=== PATIENT | female | born 1980 | race Caucasian/White ===

== ENCOUNTER 2016-06-06 17:36 | Emergency (ER) | payer BC, SELFPAY ==
[~2016-06-06 17:36] MED LIST: DIFL50TA PR; Naproxen PO; VICO5TAB OR
[2016-06-06] MEDS ORDERED: KETOROLAC 30 MG/ML VIAL (J1885) As Ordered ONE (19:28)
[2016-06-06] MEDS ORDERED: ONDANSETRON 4MG/2ML VIAL (J2405) As Ordered ONE (19:28)
[2016-06-06 19:31] LABS: BASO # 0.2 K/mm3 (0.0-0.2); BASO % 1.8 % (0.0-1.0); EOS # 0.2 K/mm3 (0.0-0.50); EOS % 2.4 % (0.0-3.0); LARGE UNSTAINED CELL # 0.2 K/mm3 (0.0-0.4); LARGE UNSTAINED CELL % 1.8 % (0.0-4.0); LYMPH # 4.4 K/mm3 (1.5-4.5); LYMPH % 40.1 % (24.0-44.0); MEAN CORPUSCULAR HGB CONC 34.5 g/dl (32.0-36.5); MONO # 0.5 K/mm3 (0.0-0.8); MONO % 4.2 % (0.0-5.0); NEUTROPHILS # 5.3 K/mm3 (1.8-7.7); NEUTROPHILS % 49.7 % (36.0-66.0); PLATELET COUNT, AUTOMATED 331 k/mm3 (150-450); RED CELL DISTRIBUTION WIDTH 12.7 % (11.5-14.5); WHITE BLOOD COUNT 10.6 K/mm3 (4.0-10.0)
[2016-06-06 19:58] LABS: ALBUMIN 3.9 GM/DL (3.2-5.2); ALBUMIN/GLOBULIN RATIO 1.03 (1.00-1.93); ALKALINE PHOSPHATASE 62 U/L (45-117); ALT/SGPT 33 U/L (12-78); AMYLASE 37 U/L (25-115); ANION GAP 8 MEQ/L (8-16); AST/SGOT 14 U/L (15-37); BILIRUBIN,DIRECT < 0.1 MG/DL (0.0-0.2); BILIRUBIN,TOTAL 0.3 MG/DL (0.2-1.0); BLOOD UREA NITROGEN 15 MG/DL (7-18); CARBON DIOXIDE LEVEL 29 MEQ/L (21-32); CHLORIDE LEVEL 106 MEQ/L (98-107); CREATININE FOR GFR 0.76 MG/DL (0.55-1.02); GLOMERULAR FILTRATION RATE > 60.0 (>60); GLUCOSE, FASTING 89 MG/DL (70-105); POTASSIUM SERUM 3.8 MEQ/L (3.5-5.1); SODIUM LEVEL 143 MEQ/L (136-145); TOTAL PROTEIN 7.7 GM/DL (6.4-8.2)
--- NOTE | 2016-06-06 20:20 | REPUSA ---
CLINICAL HISTORY: Left flank pain. TECHNIQUE: Multiple axial CT images were obtained through the abdomen and pelvis without administrat ion of oral or intravenous contrast material. COMMENTS: Comparison is made with prior CT abdomen and pelvis dated 08/29/2015. There is normal hepatic hypoattenuation without mass. There is no intra or extrahepatic biliary duct al dilatation. The spleen is normal. 1.7 cm splenic arterial aneurysm is again seen. The gallbladde r is within normal limits. The pancreas is of normal contour and attenuation characteristics. There is no evidence of adrenal mass. Small hiatal hernia is present. The kidneys are normal in size, shape and configuration. There is no evidence of renal or ureteral m ass. No renal or ureteral calculi are identified. There is no hydroureter or hydronephrosis. No evidence for appendicitis. There is evidence of circumferential wall thickening involving duodenu m, loops of jejunum and ileum compatible with panenteritis. Infectious and inflammatory etiology is considered. No evidence for small or large bowel obstruction. There is no evidence of abdominal asc ites or lymphadenopathy. Status post hysterectomy. Both ovaries appear to be present and unremarkable. There is no evidence of intrinsic or extrinsic bladder mass. There is no pelvic ascites or lymphaden opathy. Images of the lung bases show no evidence of pleural or parenchymal mass. There are no pleural effus ions. The bony structures are free of lytic or blastic lesions. IMPRESSION: 1. There is evidence of circumferential wall thickening involving duodenum, loops of jejunum and ile um compatible with panenteritis. Infectious and inflammatory etiology is considered. 2. 1.7 cm splenic arterial aneurysm is again seen. Thank you for your kind referral of this patient. We appreciate the opportunity to participate in thi s patient's care.
[2016-06-06] MEDS ORDERED: NORCO 5/325MG TABLET (BULK) As Ordered ONE (21:19)
--- NOTE | 2016-06-06 21:29 | EDDOCDS ---
Physician Documentation [facility] Name: Evangelista Melendez Age: 36 yrs Sex: Female : 1980 Arrival Date: 06/06/2016 Time: 17:36 Bed I7 / 29 Private MD: Shaye Disposition: 06/06/16 21:19 Discharged to Home/Self Care. Impression: Other abdominal pain - PANENTERITIS. - Condition is Stable. - Discharge Instructions: Abdominal Pain, Adult. - Prescriptions for Flagyl 500 mg Oral Tablet - take 1 tablet by ORAL route every 8 hours for 10 days; 30 tablet. [place] 5- 325 mg Oral Tablet - take 1 tablet by ORAL route every 6 hours As needed MDD: 4 tabs; 6 tablet. Prednisone 20 mg Oral Tablet - take 2 tablet by ORAL route once daily for 5 days; 10 tablet. ZOFRAN ODT 4 mg - dissolve 1 tablet by ORAL route 4 times per day As needed do not chew, do not swallow whole; 10 tablet. - Medication Reconciliation, Local Pharmacy Hours form. - Follow up: Shaye; When: 2 - 3 days; Reason: Recheck today's complaints, Continuance of care. - Problem is new. - Symptoms have improved. - Notes: USE MEDICATIONS INSTRUCTED, FOLLOW UP WITH YOUR DOCTOR IN 2-3 DAYS, RETURN TO THE ER IF THE SYMPTOMS WORSEN OR BECOME CONCERNING Historical: - Allergies: no known allergies; - Home Meds: 1. Cymbalta 30 mg oral cpDR 2. Ambien 10 mg Oral tab 1 tab once daily - PMHx: Fibromyalgia; Diverticulosis; - PSHx: Tubal ligation; KNEE ARTHROSCOPY; Hysterectomy; - Social history: Smoking status: Patient states was never smoker of tobacco. No barriers to communication noted, The patient speaks fluent Spanish. - Family history: Not pertinent. - : The pt / caregiver states he / she is not on anticoagulants. Home medication list is obtained from the patient. - Exposure Risk Screening:: None identified. 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 8 in. (172.72 cm); 21:13 BP 118 / 75; Pulse 54; Resp 18; Temp 97.8; Pulse Ox 100% ; Pain 7/10; jlm 17:38 Body Mass Index 31.17 (92.99 kg, 172.72 cm) dd6 MDM: 19:00 Undress patient appropriately for examination ordered. ck7 19:00 IV Saline Lock ordered. ck7 19:00 Ondansetron 4 mg IVP once ordered. ck7 19:00 ketorolac 30 mg IVP once ordered. ck7 19:00 NS 0.9% 1000 ml IV at bolus once ordered. ck7 19:01 Amylase Ordered. EDMS 19:01 Basic Metabolic Profile Ordered. EDMS 19:01 CBC with Diff Ordered. EDMS 19:01 Lipase Ordered. EDMS 19:01 Liver Profile Ordered. EDMS 19:01 Urinalysis Ordered. EDMS 19:01 Urine Culture Ordered. EDMS 19:01 NOTHING BY MOUTH+DIET ordered. EDMS 19:27 Urinalysis Reviewed. ck7 19:28 CT ABD & PELVIS: No Contrast Ordered. EDMS 19:43 Financial registration complete. zo 19:45 [facility] [place] Payment Agreement was scanned into [employer] and attached to record. zo 20:04 CBC with Diff Reviewed. ck7 20:04 Liver Profile Reviewed. ck7 20:04 Amylase Reviewed. ck7 20:04 Basic Metabolic Profile Reviewed. ck7 20:04 Lipase Reviewed. ck7 20:47 CT ABD & PELVIS: No Contrast Reviewed. ck7 21:16 HYDROcodone-acetaminophen 4 pack- 5 mg-325 mg 1 packets PO Per package directions; ck7 Dispense with patient. 1 po q4h prn for pain ordered. Administered Medications: 19:34 Drug: Ondansetron 4 mg [ondansetron HCl 2 mg/mL intravenous solution (2 mL)] Route: ms18 IVP; Site: right antecubital; 21:17 Follow up: Response: No Adverse Reaction ms18 19:34 Drug: ketorolac 30 mg [ketorolac 30 mg/mL (1 mL) injection solution (1 mL)] Route: IVP; ms18 Site: right antecubital; 21:18 Follow up: Response: No Adverse Reaction ms18 19:34 Drug: NS 0.9% 1000 ml [sodium chloride 0.9 % intravenous solution] Route: IV; Rate: ms18 bolus; Site: right antecubital; 21:17 Follow up: IV Status: Completed infusion; IV Intake: 1000ml ms18 21:25 Drug: HYDROcodone-acetaminophen 4 pack- 1 packets [hydrocodone 5 mg-acetaminophen 325 ms18 mg tablet (1 tabs)] {Co-Signature: slvaldo (Yanique Olmedo LPN).} Route: PO; 21:25 Follow up: Response: Med's dispensed home ms18 Signatures: Dispatcher [employer] EDSarath Lord Rosemary,RN RN rs3 Kaiden Colon, RADHA-C RPA-Cck7 Ami Snell RN RN ms18 Yanique duenas The chart was reviewed and I authenticate all verbal orders and agree with the evaluation and treatment provided.Corrections: (The following items were deleted from the chart) 19:03 19:00 UCG by Nursing ordered. ck7 ck7 Attachments: 19:45 [facility] [place] Payment Agreement zo [email or web address]
--- NOTE | 2016-06-06 21:29 | EDDOCDS ---
Nurse's Notes [facility] Name: Evangelista Melendez Age: 36 yrs Sex: Female : 1980 Arrival Date: 06/06/2016 Time: 17:36 Bed I7 Private MD: Shaye Diagnosis: Other abdominal pain-PANENTERITIS Presentation: 06/06 17:56 Presenting complaint: Patient states: left flank pain, nausea since this morning. Acute rs3 neurological deficits are not present. Mechanism of Injury: No Mechanism of Injury. Adult Sepsis Screening: The patient does not have new or worsening altered mentation. Patient's respiratory rate is less than 22. Systolic blood pressure is greater than 100. Patient has a qSOFA score of 0- Negative Sepsis Screen. Suicide/Homicide risk assessment- the patient denies having any suicidal and/or homicidal ideations and does not present with any other emotional, behavioral or mental health complaints. Status: Patient is not a guest services director or dependent. Transition of care: patient was not received from another setting of care. 17:56 Acuity: ANGELICA Level 3 rs3 17:56 Method Of Arrival: Walkin/Carried/Asstd rs3 Triage Assessment: 17:58 General: Appears in no apparent distress. Pain: Location: posterior aspect of left rs3 lateral abdomen and anterior aspect of left lateral abdomen. HIV screening NA for this visit Offered previously. Musculoskeletal: Reports Pain is 5 out of 10 on a pain scale. 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 Cymbalta 30 mg oral cpDR 2. Ambien 10 mg Oral tab 1 tab once daily - PMHx: Fibromyalgia; Diverticulosis; - PSHx: Tubal ligation; KNEE ARTHROSCOPY; Hysterectomy; - Social history: Smoking status: Patient states was never smoker of tobacco. No barriers to communication noted, The patient speaks fluent Sami. - Family history: Not pertinent. - : The pt / caregiver states he / she is not on anticoagulants. Home medication list is obtained from the patient. - Exposure Risk Screening:: None identified. Screenin:35 Screening information is obtained from the patient. Fall risk: No risks identified. ms18 Assistance ADL's: requires no assistance with activities of daily living. Abuse/DV Screen: The patient / caregiver reports he/she is: not in a situation that causes fear, pain or injury. Nutritional screening: No deficits noted. Advance Directives: There is no living will. home support is adequate. Assessment: 19:35 General: Appears in no apparent distress, comfortable, Behavior is appropriate for age, ms18 cooperative. Pain: Location: left flank Pain currently is 7 out of 10 on a pain scale. Pain began this morning. Neurological: Level of Consciousness is awake, alert, obeys commands, Oriented to person, place, time. Respiratory: No deficits noted. : Denies burning with urination, urinary frequency. Derm: Skin is pink, warm & dry. 21:26 General: Appears in no apparent distress, comfortable, Behavior is appropriate for age, ms18 cooperative, pleasant. Pain: Pain currently is 6 out of 10 on a pain scale. Neurological: No deficits noted. Respiratory: No deficits noted. Airway is patent Respiratory effort is even, unlabored. Derm: Skin is pink, warm & dry. Vital Signs: 17:38 BP 115 / 80; Pulse 78; Resp 18 S; Temp 98.3(O); Pulse Ox 99% on R/A; Weight 92.99 kg dd6 (R); Height 5 ft. 8 in. (172.72 cm); 21:13 BP 118 / 75; Pulse 54; Resp 18; Temp 97.8; Pulse Ox 100% ; Pain 7/10; jlm 17:38 Body Mass Index 31.17 (92.99 kg, 172.72 cm) dd6 Vitals: 17:38 Log In Time: June 06, 2016 at 17:35. dd6 ED Course: 17:37 Patient visited by Kale Lopez PCA. dd6 17:37 Patient moved to Waiting dd6 17:38 Shaye is Private Physician. dd6 17:38 Patient moved to Pre RCE dd6 17:57 Triage Initiated rs3 18:44 Patient moved to Triage 2 ar3 18:48 Patient visited by Sandra Molina RN. dls 18:54 Kaiden Colon R[facility]-C [facility] ck7 18:54 Eulogio Snyder DO is Attending Physician. ck7 18:54 Patient visited by Kaiden Colon RPA-C. ck7 19:01 Patient moved to I7 / 29 ar3 19:12 Urinalysis Sent. ar3 19:12 Urine Culture Sent. ar3 19:25 Patient visited by Kaiden Colon RPA-C. ck7 19:25 Patient visited by Ami Snell RN. ms18 19:25 Amylase Sent. ms18 19:25 Basic Metabolic Profile Sent. ms18 19:25 CBC with Diff Sent. ms18 19:25 Lipase Sent. ms18 19:25 Liver Profile Sent. ms18 19:35 The patient / caregiver is instructed regarding the plan of care and ED course. ms18 Accompanied by Significant Other, Patient has correct armband on for positive identification. Placed in gown. Bed in low position. Call light in reach. Property :Personal belongings accompany Pt. 19:35 Inserted saline lock: 20 gauge in right antecubital area and blood collected. The ms18 patient tolerated the procedure well. 19:[address] ms18 19:45 [facility] Payment Agreement was scanned into [email or web address] and attached to record. zo 19:57 Patient visited by Ami Snell RN. ms18 19:57 Patient moved to I ms18 20:38 Patient visited by Kaiden Colon RPA-C. ck7 20:45 CT ABD & PELVIS: No Contrast Returned. EDMS 21:11 Patient visited by Kaiden Colon RPA-C. ck7 21:13 Patient visited by Leila Mcintyre, Director Client Services. [facility] 21:19 Shaye is Referral Physician. ck7 21:20 Discontinued lock intact, bleeding controlled, pressure dressing applied, No slm redness/swelling at site. 21:26 No procedures done that require assistance. ms18 Administered Medications: 19:34 Drug: Ondansetron 4 mg [ondansetron HCl 2 mg/mL intravenous solution (2 mL)] Route: ms18 IVP; Site: right antecubital; 21:17 Follow up: Response: No Adverse Reaction ms18 19:34 Drug: ketorolac 30 mg [ketorolac 30 mg/mL (1 mL) injection solution (1 mL)] Route: IVP; ms18 Site: right antecubital; 21:18 Follow up: Response: No Adverse Reaction ms18 19:34 Drug: NS 0.9% 1000 ml [sodium chloride 0.9 % intravenous solution] Route: IV; Rate: ms18 bolus; Site: right antecubital; 21:17 Follow up: IV Status: Completed infusion; IV Intake: 1000ml ms18 21:25 Drug: HYDROcodone-acetaminophen 4 pack- 1 packets [hydrocodone 5 mg-acetaminophen 325 ms18 mg tablet (1 tabs)] {Co-Signature: slvaldo (Yanique Cunninghamneo MCKENZIE).} Route: PO; 21:25 Follow up: Response: Med's dispensed home ms18 Intake: 21:17 IV: 1000.00ml; Total: 1000.00ml. ms18 Order Results: Lab Order: Amylase; SPEC'M 06/06/16 19:08 Test: AMYLASE; Value: 37; Range: 25-115; Units: U/L; Status: F Lab Order: Basic Metabolic Profile; SPEC'M 06/06/16 19:08 Test: GLUCOSE, FASTING; Value: 89; Range: 70-105; Units: MG/DL; Status: F Test: BLOOD UREA NITROGEN; Value: 15; Range: 7-18; Units: MG/DL; Status: F Test: CREATININE FOR GFR; Value: 0.76; Range: 0.55-1.02; Units: MG/DL; Status: F Test: GLOMERULAR FILTRATION RATE; Value: > 60.0; Range: >60; Status: F Test: SODIUM LEVEL; Value: 143; Range: 136-145; Units: MEQ/L; Status: F Test: POTASSIUM SERUM; Value: 3.8; Range: 3.5-5.1; Units: MEQ/L; Status: F Test: CHLORIDE LEVEL; Value: 106; Range: 98-107; Units: MEQ/L; Status: F Test: CARBON DIOXIDE LEVEL; Value: 29; Range: 21-32; Units: MEQ/L; Status: F Test: ANION GAP; Value: 8; Range: 8-16; Units: MEQ/L; Status: F Test: CALCIUM LEVEL; Value: 9.0; Range: 8.5-10.1; Units: MG/DL; Status: F Test Note: ; Units are mL/min/1.73 m2 Chronic Kidney Disease Staging per NKF: Stage I & II GFR >=60 Normal to Mildly Decreased Stage III GFR 30-59 Moderately Decreased Stage IV GFR 15-29 Severely Decreased Stage V GFR <15 Very Little GFR Left ESRD GFR <15 on TASSEL CLIPPER Lab Order: CBC with Diff; SPEC'M 06/06/16 19:08 Test: WHITE BLOOD COUNT; Value: 10.6; Range: 4.0-10.0; Abnormal: Above high normal; Units: K/mm3; Status: F Test: RED BLOOD COUNT; Value: 5.01; Range: 4.00-5.40; Units: M/mm3; Status: F Test: HEMOGLOBIN; Value: 14.5; Range: 12.0-16.0; Units: g/dl; Status: F Test: HEMATOCRIT; Value: 42.1; Range: 36.0-47.0; Units: %; Status: F Test: MEAN CORPUSCULAR VOLUME; Value: 84.0; Range: 80.0-96.0; Units: fl; Status: F Test: MEAN CORPUSCULAR HEMOGLOBIN; Value: 29.0; Range: 27.0-33.0; Units: pg; Status: F Test: MEAN CORPUSCULAR HGB CONC; Value: 34.5; Range: 32.0-36.5; Units: g/dl; Status: F Test: RED CELL DISTRIBUTION WIDTH; Value: 12.7; Range: 11.5-14.5; Units: %; Status: F Test: PLATELET COUNT, AUTOMATED; Value: 331; Range: 150-450; Units: k/mm3; Status: F Test: NEUTROPHILS %; Value: 49.7; Range: 36.0-66.0; Units: %; Status: F Test: LYMPH %; Value: 40.1; Range: 24.0-44.0; Units: %; Status: F Test: MONO %; Value: 4.2; Range: 0.0-5.0; Units: %; Status: F Test: EOS %; Value: 2.4; Range: 0.0-3.0; Units: %; Status: F Test: BASO %; Value: 1.8; Range: 0.0-1.0; Abnormal: Above high normal; Units: %; Status: F Test: LARGE UNSTAINED CELL %; Value: 1.8; Range: 0.0-4.0; Units: %; Status: F Test: NEUTROPHILS #; Value: 5.3; Range: 1.8-7.7; Units: K/mm3; Status: F Test: LYMPH #; Value: 4.4; Range: 1.5-4.5; Units: K/mm3; Status: F Test: MONO #; Value: 0.5; Range: 0.0-0.8; Units: K/mm3; Status: F Test: EOS #; Value: 0.2; Range: 0.0-0.50; Units: K/mm3; Status: F Test: BASO #; Value: 0.2; Range: 0.0-0.2; Units: K/mm3; Status: F Test: LARGE UNSTAINED CELL #; Value: 0.2; Range: 0.0-0.4; Units: K/mm3; Status: F Lab Order: Lipase; [facility]' 06/06/16 19:08 Test: LIPASE; Value: 135; Range: 73-393; Units: U/L; Status: F Lab Order: Liver Profile; [facility]' 06/06/16 19:08 Test: AST/SGOT; Value: 14; Range: 15-37; Abnormal: Below low normal; Units: U/L; Status: F Test: ALT/SGPT; Value: 33; Range: 12-78; Units: U/L; Status: F Test: ALKALINE PHOSPHATASE; Value: 62; Range: 45-117; Units: U/L; Status: F Test: BILIRUBIN,TOTAL; Value: 0.3; Range: 0.2-1.0; Units: MG/DL; Status: F Test: BILIRUBIN,DIRECT; Value: < 0.1; Range: 0.0-0.2; Units: MG/DL; Status: F Test: TOTAL PROTEIN; Value: 7.7; Range: 6.4-8.2; Units: GM/DL; Status: F Test: ALBUMIN; Value: 3.9; Range: 3.2-5.2; Units: GM/DL; Status: F Test: ALBUMIN/GLOBULIN RATIO; Value: 1.03; Range: 1.00-1.93; Status: F Lab Order: Urinalysis; [facility]' 06/06/16 19:04 Test: APPEARANCE, URINE; Value: CLOUDY; Range: CLEAR; Abnormal: Above high normal; Status: F Test: COLOR, URINE; Value: YELLOW; Range: YELLOW; Status: F Test: PH,URINE; Value: 7.0; Range: 5.0-9.0; Units: UNITS; Status: F Test: SPECIFIC GRAVITY URINE AUTO; Value: 1.014; Range: 1.002-1.035; Status: F Test: PROTEIN, URINE AUTO; Value: NEGATIVE; Range: NEGATIVE; Units: mg/dL; Status: F Test: GLUCOSE, URINE (UA) AUTO; Value: NEGATIVE; Range: NEGATIVE; Units: mg/dL; Status: F Test: KETONE, URINE AUTO; Value: NEGATIVE; Range: NEGATIVE; Units: mg/dL; Status: F Test: UROBILINOGEN, URINE AUTO; Value: 0.2; Range: 0.0-2.0; Units: mg/dL; Status: F Test: BILIRUBIN, URINE AUTO; Value: NEGATIVE; Range: NEGATIVE; Status: F Test: NITRITE, URINE AUTO; Value: NEGATIVE; Range: NEGATIVE; Status: F Test: LEUKOCYTE ESTERASE, URINE AUTO; Value: NEGATIVE; Range: NEGATIVE; Status: F Test: BLOOD, URINE BLOOD; Value: 1+; Range: NEGATIVE; Abnormal: Above high normal; Status: F Test: WBC, URINE AUTO; Value: 0; Range: 0-3; Units: /HPF; Status: F Test: RBC, URINE AUTO; Value: 3; Range: 0-3; Units: /HPF; Status: F Test: BACTERIA, URINE AUTO; Value: NEGATIVE; Range: NEGATIVE; Status: F Test: SQUAMOUS EPITHELIAL CELL UR AU; Value: 1; Range: 0-6; Units: /HPF; Status: F Test: HYALINE CAST, URINE AUTO; Value: 0; Range: 0-1; Units: /LPF; Status: F Test: AMORPHOUS SEDIMENT; Value: SMALL; Range: NEGATIVE; Abnormal: Above high normal; Status: F Radiology Order: CT ABD & PELVIS: No Contrast Test: CT ABD & PELVIS: No Contrast REASON FOR EXAMINATION: LEFT FLANK PAIN, HEMATURIA, R/O STONE; ; CLINICAL HISTORY: Left flank pain.; ; TECHNIQUE: Multiple axial CT images were obtained through the abdomen and pelvis without administrat; ion of oral or intravenous contrast material.; ; COMMENTS:; Comparison is made with prior CT abdomen and pelvis dated 08/29/2015.; ; There is normal hepatic hypoattenuation without mass. There is no intra or extrahepatic biliary duct; al dilatation. The spleen is normal. 1.7 cm splenic arterial aneurysm is again seen. The gallbladde; r is within normal limits. The pancreas is of normal contour and attenuation characteristics. There; is no evidence of adrenal mass.; ; Small hiatal hernia is present.; ; The kidneys are normal in size, shape and configuration. There is no evidence of renal or ureteral m; ass. No renal or ureteral calculi are identified. There is no hydroureter or hydronephrosis.; ; No evidence for appendicitis. There is evidence of circumferential wall thickening involving duodenu; m, loops of jejunum and ileum compatible with panenteritis. Infectious and inflammatory etiology is; considered. No evidence for small or large bowel obstruction. There is no evidence of abdominal asc; ites or lymphadenopathy.; ; Status post hysterectomy. Both ovaries appear to be present and unremarkable.; ; There is no evidence of intrinsic or extrinsic bladder mass. There is no pelvic ascites or lymphaden; opathy.; ; Images of the lung bases show no evidence of pleural or parenchymal mass. There are no pleural effus; ions. The bony structures are free of lytic or blastic lesions.; ; IMPRESSION:; 1. There is evidence of circumferential wall thickening involving duodenum, loops of jejunum and ile; um compatible with panenteritis. Infectious and inflammatory etiology is considered.; 2. 1.7 cm splenic arterial aneurysm is again seen.; ; Thank you for your kind referral of this patient. We appreciate the opportunity to participate in [facility]; s patient's care.; ; ; Outcome: 19:35 CT Study completed. ms18 21:19 Discharge ordered by Provider. ck7 21:26 Discharge Assessment: Patient awake, alert and oriented x 3. No cognitive and/or ms18 functional deficits noted. Patient verbalized understanding of disposition instructions. patient administered narcotics - no. The following High Risk Discharge criteria are identified: None. Discharged to home ambulatory. Condition: good Condition: stable Condition: improved. Discharge instructions given to patient, Instructed on discharge instructions, follow up and referral plans. medication usage, Demonstrated understanding of instructions, medications, Pt was receptive of discharge instructions/ teaching. Prescriptions given X 4. 21:27 Patient left the ED. ms18 Signatures: Dispatcher [employer] EDMS Sandra Molina, RN RN dls Sarath Wilder Daniell, CHIP CRUSHER OPERATOR CHIP CRUSHER OPERATOR dd6 Flavia Bae,RN RN rs3 Susan Baeza, CHIP CRUSHER OPERATOR CHIP CRUSHER OPERATOR ar3 Kaiden Colon, RPA-C RPA-Cck7 Yanique Olmedo LPN LPN slm Mitchell, Jessie, Director Client Services Unit Ami Ying RN RN ms18 Yanique duenas MTDD
--- NOTE | 2016-06-08 22:28 | EDDOCDS ---
Physician Documentation [facility] Name: Evangelista Melendez Age: 36 yrs Sex: Female : 1980 Arrival Date: 06/06/2016 Time: 17:36 Bed I7 / 29 Private MD: Shaye Disposition: 06/06/16 21:19 Discharged to Home/Self Care. Impression: Other abdominal pain - PANENTERITIS. - Condition is Stable. - Discharge Instructions: Abdominal Pain, Adult. - Prescriptions for Flagyl 500 mg Oral Tablet - take 1 tablet by ORAL route every 8 hours for 10 days; 30 tablet. Clifford 5- 325 mg Oral Tablet - take 1 tablet by ORAL route every 6 hours As needed MDD: 4 tabs; 6 tablet. Prednisone 20 mg Oral Tablet - take 2 tablet by ORAL route once daily for 5 days; 10 tablet. ZOFRAN ODT 4 mg - dissolve 1 tablet by ORAL route 4 times per day As needed do not chew, do not swallow whole; 10 tablet. - Medication Reconciliation, Local Pharmacy Hours form. - Follow up: Shaye; When: 2 - 3 days; Reason: Recheck today's complaints, Continuance of care. - Problem is new. - Symptoms have improved. - Notes: USE MEDICATIONS INSTRUCTED, FOLLOW UP WITH YOUR DOCTOR IN 2-3 DAYS, RETURN TO THE ER IF THE SYMPTOMS WORSEN OR BECOME CONCERNING Historical: - Allergies: no known allergies; - Home Meds: 1. Cymbalta 30 mg oral cpDR 2. Ambien 10 mg Oral tab 1 tab once daily - PMHx: Fibromyalgia; Diverticulosis; - PSHx: Tubal ligation; KNEE ARTHROSCOPY; Hysterectomy; - Social history: Smoking status: Patient states was never smoker of tobacco. No barriers to communication noted, The patient speaks fluent [place]. - Family history: Not pertinent. - : The pt / caregiver states he / she is not on anticoagulants. Home medication list is obtained from the patient. - Exposure Risk Screening:: None identified. 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 8 in. (172.72 cm); 21:13 BP 118 / 75; Pulse 54; Resp 18; Temp 97.8; Pulse Ox 100% ; Pain 7/10; jlm 17:38 Body Mass Index 31.17 (92.99 kg, 172.72 cm) dd6 MDM: 19:00 Undress patient appropriately for examination ordered. ck7 19:00 IV Saline Lock ordered. ck7 19:00 Ondansetron 4 mg IVP once ordered. ck7 19:00 ketorolac 30 mg IVP once ordered. ck7 19:00 NS 0.9% 1000 ml IV at bolus once ordered. ck7 19:01 Amylase Ordered. EDMS 19:01 Basic Metabolic Profile Ordered. EDMS 19:01 CBC with Diff Ordered. EDMS 19:01 Lipase Ordered. EDMS 19:01 Liver Profile Ordered. EDMS 19:01 Urinalysis Ordered. EDMS 19:01 Urine Culture Ordered. EDMS 19:01 NOTHING BY MOUTH+DIET ordered. EDMS 19:27 Urinalysis Reviewed. ck7 19:28 CT ABD & PELVIS: No Contrast Ordered. EDMS 19:43 Financial registration complete. zo 19:45 [facility] Payment Agreement was scanned into [employer] and attached to record. zo 20:04 CBC with Diff Reviewed. ck7 20:04 Liver Profile Reviewed. ck7 20:04 Amylase Reviewed. ck7 20:04 Basic Metabolic Profile Reviewed. ck7 20:04 Lipase Reviewed. ck7 20:47 CT ABD & PELVIS: No Contrast Reviewed. ck7 21:16 HYDROcodone-acetaminophen 4 pack- 5 mg-325 mg 1 packets PO Per package directions; ck7 Dispense with patient. 1 po q4h prn for pain ordered. 22:09 T-Sheet-- Draft Copy was scanned into [employer] and attached to record. klr Administered Medications: 19:34 Drug: Ondansetron 4 mg [ondansetron HCl 2 mg/mL intravenous solution (2 mL)] Route: ms18 IVP; Site: right antecubital; 21:17 Follow up: Response: No Adverse Reaction ms18 19:34 Drug: ketorolac 30 mg [ketorolac 30 mg/mL (1 mL) injection solution (1 mL)] Route: IVP; ms18 Site: right antecubital; 21:18 Follow up: Response: No Adverse Reaction ms18 19:34 Drug: NS 0.9% 1000 ml [sodium chloride 0.9 % intravenous solution] Route: IV; Rate: ms18 bolus; Site: right antecubital; 21:17 Follow up: IV Status: Completed infusion; IV Intake: 1000ml ms18 21:25 Drug: HYDROcodone-acetaminophen 4 pack- 1 packets [hydrocodone 5 mg-acetaminophen 325 ms18 mg tablet (1 tabs)] {Co-Signature: slm (Yanique Olmedo LPN).} Route: PO; 21:25 Follow up: Response: Med's dispensed home ms18 Signatures: Dispatcher [employer] EDSarath Lord Rosemary, RN RN rs3 Kaiden Colon RPA-C RPA-Cck7 Ami Snell RN RN ms18 Nanette Davidson LPN The chart was reviewed and I authenticate all verbal orders and agree with the evaluation and treatment provided.Corrections: (The following items were deleted from the chart) 19:03 19:00 UCG by Nursing ordered. ck7 ck7 Attachments: 19:45 [facility] Payment Agreement zo 22:09 T-Sheet-- Draft Copy kljesse Chart Complete MTDD
--- NOTE | 2016-06-08 22:28 | EDDOCDS ---
Physician Documentation [facility] Name: Evangelista Melendez Age: 36 yrs Sex: Female : 1980 Arrival Date: 06/06/2016 Time: 17:36 Bed I7 / 29 Private MD: Shaye Disposition: 06/06/16 21:19 Discharged to Home/Self Care. Impression: Other abdominal pain - PANENTERITIS. - Condition is Stable. - Discharge Instructions: Abdominal Pain, Adult. - Prescriptions for Flagyl 500 mg Oral Tablet - take 1 tablet by ORAL route every 8 hours for 10 days; 30 tablet. [place] 5- 325 mg Oral Tablet - take 1 tablet by ORAL route every 6 hours As needed MDD: 4 tabs; 6 tablet. Prednisone 20 mg Oral Tablet - take 2 tablet by ORAL route once daily for 5 days; 10 tablet. ZOFRAN ODT 4 mg - dissolve 1 tablet by ORAL route 4 times per day As needed do not chew, do not swallow whole; 10 tablet. - Medication Reconciliation, Local Pharmacy Hours form. - Follow up: Shaye; When: 2 - 3 days; Reason: Recheck today's complaints, Continuance of care. - Problem is new. - Symptoms have improved. - Notes: USE MEDICATIONS INSTRUCTED, FOLLOW UP WITH YOUR DOCTOR IN 2-3 DAYS, RETURN TO THE ER IF THE SYMPTOMS WORSEN OR BECOME CONCERNING Historical: - Allergies: no known allergies; - Home Meds: 1. Cymbalta 30 mg oral cpDR 2. Ambien 10 mg Oral tab 1 tab once daily - PMHx: Fibromyalgia; Diverticulosis; - PSHx: Tubal ligation; KNEE ARTHROSCOPY; Hysterectomy; - Social history: Smoking status: Patient states was never smoker of tobacco. No barriers to communication noted, The patient speaks fluent Nigerian. - Family history: Not pertinent. - : The pt / caregiver states he / she is not on anticoagulants. Home medication list is obtained from the patient. - Exposure Risk Screening:: None identified. 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 8 in. (172.72 cm); 21:13 BP 118 / 75; Pulse 54; Resp 18; Temp 97.8; Pulse Ox 100% ; Pain 7/10; jlm 17:38 Body Mass Index 31.17 (92.99 kg, 172.72 cm) dd6 MDM: 19:00 Undress patient appropriately for examination ordered. ck7 19:00 IV Saline Lock ordered. ck7 19:00 Ondansetron 4 mg IVP once ordered. ck7 19:00 ketorolac 30 mg IVP once ordered. ck7 19:00 NS 0.9% 1000 ml IV at bolus once ordered. ck7 19:01 Amylase Ordered. EDMS 19:01 Basic Metabolic Profile Ordered. EDMS 19:01 CBC with Diff Ordered. EDMS 19:01 Lipase Ordered. EDMS 19:01 Liver Profile Ordered. EDMS 19:01 Urinalysis Ordered. EDMS 19:01 Urine Culture Ordered. EDMS 19:01 NOTHING BY MOUTH+DIET ordered. EDMS 19:27 Urinalysis Reviewed. ck7 19:28 CT ABD & PELVIS: No Contrast Ordered. EDMS 19:43 Financial registration complete. zo 19:45 [facility] Payment Agreement was scanned into [employer] and attached to record. zo 20:04 CBC with Diff Reviewed. ck7 20:04 Liver Profile Reviewed. ck7 20:04 Amylase Reviewed. ck7 20:04 Basic Metabolic Profile Reviewed. ck7 20:04 Lipase Reviewed. ck7 20:47 CT ABD & PELVIS: No Contrast Reviewed. ck7 21:16 HYDROcodone-acetaminophen 4 pack- 5 mg-325 mg 1 packets PO Per package directions; ck7 Dispense with patient. 1 po q4h prn for pain ordered. 22:09 T-Sheet-- Draft Copy was scanned into [employer] and attached to record. klr Administered Medications: 19:34 Drug: Ondansetron 4 mg [ondansetron HCl 2 mg/mL intravenous solution (2 mL)] Route: ms18 IVP; Site: right antecubital; 21:17 Follow up: Response: No Adverse Reaction ms18 19:34 Drug: ketorolac 30 mg [ketorolac 30 mg/mL (1 mL) injection solution (1 mL)] Route: IVP; ms18 Site: right antecubital; 21:18 Follow up: Response: No Adverse Reaction ms18 19:34 Drug: NS 0.9% 1000 ml [sodium chloride 0.9 % intravenous solution] Route: IV; Rate: ms18 bolus; Site: right antecubital; 21:17 Follow up: IV Status: Completed infusion; IV Intake: 1000ml ms18 21:25 Drug: HYDROcodone-acetaminophen 4 pack- 1 packets [hydrocodone 5 mg-acetaminophen 325 ms18 mg tablet (1 tabs)] {Co-Signature: slm (Yanique Olmedo LPN).} Route: PO; 21:25 Follow up: Response: Med's dispensed home ms18 Signatures: Dispatcher [employer] EDSarath Lord Rosemary, RN RN rs3 Kaiden Colon RPA-C RPA-Cck7 Ami Snell RN RN ms18 Nanette Davidson LPN The chart was reviewed and I authenticate all verbal orders and agree with the evaluation and treatment provided.Corrections: (The following items were deleted from the chart) 19:03 19:00 UCG by Nursing ordered. ck7 ck7 Attachments: 19:45 [facility] Payment Agreement zo 22:09 T-Sheet-- Draft Copy kljesse Chart Complete MTDD
--- NOTE | 2016-06-08 22:28 | EDDOCDS ---
Nurse's Notes [facility] Name: Evnagelista Melendez Age: 36 yrs Sex: Female : 1980 Arrival Date: 06/06/2016 Time: 17:36 Bed I7 Private MD: Shaye Diagnosis: Other abdominal pain-PANENTERITIS Presentation: 06/06 17:56 Presenting complaint: Patient states: left flank pain, nausea since this morning. Acute rs3 neurological deficits are not present. Mechanism of Injury: No Mechanism of Injury. Adult Sepsis Screening: The patient does not have new or worsening altered mentation. Patient's respiratory rate is less than 22. Systolic blood pressure is greater than 100. Patient has a qSOFA score of 0- Negative Sepsis Screen. Suicide/Homicide risk assessment- the patient denies having any suicidal and/or homicidal ideations and does not present with any other emotional, behavioral or mental health complaints. 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 Transition of care: patient was not received from another setting of care. 17:56 Acuity: ANGELICA Level 3 rs3 17:56 Method Of Arrival: Walkin/Carried/Asstd rs3 Triage Assessment: 17:58 General: Appears in no apparent distress. Pain: Location: posterior aspect of left rs3 lateral abdomen and anterior aspect of left lateral abdomen. HIV screening NA for this visit Offered previously. Musculoskeletal: Reports Pain is 5 out of 10 on a pain scale. 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 Cymbalta 30 mg oral cpDR 2. Ambien 10 mg Oral tab 1 tab once daily - PMHx: Fibromyalgia; Diverticulosis; - PSHx: Tubal ligation; KNEE ARTHROSCOPY; Hysterectomy; - Social history: Smoking status: Patient states was never smoker of tobacco. No barriers to communication noted, The patient speaks fluent Vietnamese. - Family history: Not pertinent. - : The pt / caregiver states he / she is not on anticoagulants. Home medication list is obtained from the patient. - Exposure Risk Screening:: None identified. Screenin:35 Screening information is obtained from the patient. Fall risk: No risks identified. ms18 Assistance ADL's: requires no assistance with activities of daily living. Abuse/DV Screen: The patient / caregiver reports he/she is: not in a situation that causes fear, pain or injury. Nutritional screening: No deficits noted. Advance Directives: There is no living will. home support is adequate. Assessment: 19:35 General: Appears in no apparent distress, comfortable, Behavior is appropriate for age, ms18 cooperative. Pain: Location: left flank Pain currently is 7 out of 10 on a pain scale. Pain began this morning. Neurological: Level of Consciousness is awake, alert, obeys commands, Oriented to person, place, time. Respiratory: No deficits noted. : Denies burning with urination, urinary frequency. Derm: Skin is pink, warm & dry. 20:30 General: Pt in no acute distress. Will continue to monitor pt. ms18 21:26 General: Appears in no apparent distress, comfortable, Behavior is appropriate for age, ms18 cooperative, pleasant. Pain: Pain currently is 6 out of 10 on a pain scale. Neurological: No deficits noted. Respiratory: No deficits noted. Airway is patent Respiratory effort is even, unlabored. Derm: Skin is pink, warm & dry. Vital Signs: 17:38 BP 115 / 80; Pulse 78; Resp 18 S; Temp 98.3(O); Pulse Ox 99% on R/A; Weight 92.99 kg dd6 (R); Height 5 ft. 8 in. (172.72 cm); 21:13 BP 118 / 75; Pulse 54; Resp 18; Temp 97.8; Pulse Ox 100% ; Pain 7/10; jlm 17:38 Body Mass Index 31.17 (92.99 kg, 172.72 cm) dd6 Vitals: 17:38 Log In Time: June 06, 2016 at 17:35. dd6 ED Course: 17:37 Patient visited by Kale Lopez PCA. dd6 17:37 Patient moved to Waiting dd6 17:38 Shaye is Private Physician. dd6 17:38 Patient moved to Pre RCE dd6 17:57 Triage Initiated rs3 18:44 Patient moved to Triage 2 ar3 18:48 Patient visited by Sandra Molina RN. dls 18:54 Kaiden Colon RPA-C is PHCP. ck7 18:54 Eulogio Snyder DO is Attending Physician. ck7 18:54 Patient visited by Kaiden Colon RPA-C. ck7 19:01 Patient moved to I ar3 19:12 Urinalysis Sent. ar3 19:12 Urine Culture Sent. ar3 19:25 Patient visited by Kaiden Colon RPA-C. ck7 19:25 Patient visited by Ami Snell RN. ms18 19:25 Amylase Sent. ms18 19:25 Basic Metabolic Profile Sent. ms18 19:25 CBC with Diff Sent. ms18 19:25 Lipase Sent. ms18 19:25 Liver Profile Sent. ms18 19:35 The patient / caregiver is instructed regarding the plan of care and ED course. ms18 Accompanied by Significant Other, Patient has correct armband on for positive identification. Placed in gown. Bed in low position. Call light in reach. Property :Personal belongings accompany Pt. 19:35 Inserted saline lock: 20 gauge in right antecubital area and blood collected. The ms18 patient tolerated the procedure well. 19:[address] ms18 19:45 [facility] Payment Agreement was scanned into [employer] and attached to record. zo 19:57 Patient visited by Ami Snell RN. ms18 19:57 Patient moved to ms18 20:38 Patient visited by Kaiden Colon RPA-C. ck7 20:45 CT ABD & PELVIS: No Contrast Returned. EDMS 21:11 Patient visited by Kaiden Colon RPA-C. ck7 21:13 Patient visited by Leila Mcintyre, Safe Technician. jl 21:19 Shaye is Referral Physician. ck7 21:20 Discontinued lock intact, bleeding controlled, pressure dressing applied, No slm redness/swelling at site. 21:26 No procedures done that require assistance. ms18 22:09 T-Sheet-- Draft Copy was scanned into [employer] and attached to record. klr Administered Medications: 19:34 Drug: Ondansetron 4 mg [ondansetron HCl 2 mg/mL intravenous solution (2 mL)] Route: ms18 IVP; Site: right antecubital; 21:17 Follow up: Response: No Adverse Reaction ms18 19:34 Drug: ketorolac 30 mg [ketorolac 30 mg/mL (1 mL) injection solution (1 mL)] Route: IVP; ms18 Site: right antecubital; 21:18 Follow up: Response: No Adverse Reaction ms18 19:34 Drug: NS 0.9% 1000 ml [sodium chloride 0.9 % intravenous solution] Route: IV; Rate: ms18 bolus; Site: right antecubital; 21:17 Follow up: IV Status: Completed infusion; IV Intake: 1000ml ms18 21:25 Drug: HYDROcodone-acetaminophen 4 pack- 1 packets [hydrocodone 5 mg-acetaminophen 325 ms18 mg tablet (1 tabs)] {Co-Signature: slm (Yanique Olmedo LPN).} Route: PO; 21:25 Follow up: Response: Med's dispensed home ms18 Intake: 21:17 IV: 1000.00ml; Total: 1000.00ml. ms18 Order Results: Lab Order: Amylase; SPEC'M 06/06/16 19:08 Test: AMYLASE; Value: 37; Range: 25-115; Units: U/L; Status: F Lab Order: Basic Metabolic Profile; SPEC'M 06/06/16 19:08 Test: GLUCOSE, FASTING; Value: 89; Range: 70-105; Units: MG/DL; Status: F Test: BLOOD UREA NITROGEN; Value: 15; Range: 7-18; Units: MG/DL; Status: F Test: CREATININE FOR GFR; Value: 0.76; Range: 0.55-1.02; Units: MG/DL; Status: F Test: GLOMERULAR FILTRATION RATE; Value: > 60.0; Range: >60; Status: F Test: SODIUM LEVEL; Value: 143; Range: 136-145; Units: MEQ/L; Status: F Test: POTASSIUM SERUM; Value: 3.8; Range: 3.5-5.1; Units: MEQ/L; Status: F Test: CHLORIDE LEVEL; Value: 106; Range: 98-107; Units: MEQ/L; Status: F Test: CARBON DIOXIDE LEVEL; Value: 29; Range: 21-32; Units: MEQ/L; Status: F Test: ANION GAP; Value: 8; Range: 8-16; Units: MEQ/L; Status: F Test: CALCIUM LEVEL; Value: 9.0; Range: 8.5-10.1; Units: MG/DL; Status: F Test Note: ; Units are mL/min/1.73 m2 Chronic Kidney Disease Staging per NKF: Stage I & II GFR >=60 Normal to Mildly Decreased Stage III GFR 30-59 Moderately Decreased Stage IV GFR 15-29 Severely Decreased Stage V GFR <15 Very Little GFR Left ESRD GFR <15 on ICER HAND Lab Order: CBC with Diff; SPEC'M 06/06/16 19:08 Test: WHITE BLOOD COUNT; Value: 10.6; Range: 4.0-10.0; Abnormal: Above high normal; Units: K/mm3; Status: F Test: RED BLOOD COUNT; Value: 5.01; Range: 4.00-5.40; Units: M/mm3; Status: F Test: HEMOGLOBIN; Value: 14.5; Range: 12.0-16.0; Units: g/dl; Status: F Test: HEMATOCRIT; Value: 42.1; Range: 36.0-47.0; Units: %; Status: F Test: MEAN CORPUSCULAR VOLUME; Value: 84.0; Range: 80.0-96.0; Units: fl; Status: F Test: MEAN CORPUSCULAR HEMOGLOBIN; Value: 29.0; Range: 27.0-33.0; Units: pg; Status: F Test: MEAN CORPUSCULAR HGB CONC; Value: 34.5; Range: 32.0-36.5; Units: g/dl; Status: F Test: RED CELL DISTRIBUTION WIDTH; Value: 12.7; Range: 11.5-14.5; Units: %; Status: F Test: PLATELET COUNT, AUTOMATED; Value: 331; Range: 150-450; Units: k/mm3; Status: F Test: NEUTROPHILS %; Value: 49.7; Range: 36.0-66.0; Units: %; Status: F Test: LYMPH %; Value: 40.1; Range: 24.0-44.0; Units: %; Status: F Test: MONO %; Value: 4.2; Range: 0.0-5.0; Units: %; Status: F Test: EOS %; Value: 2.4; Range: 0.0-3.0; Units: %; Status: F Test: BASO %; Value: 1.8; Range: 0.0-1.0; Abnormal: Above high normal; Units: %; Status: F Test: LARGE UNSTAINED CELL %; Value: 1.8; Range: 0.0-4.0; Units: %; Status: F Test: NEUTROPHILS #; Value: 5.3; Range: 1.8-7.7; Units: K/mm3; Status: F Test: LYMPH #; Value: 4.4; Range: 1.5-4.5; Units: K/mm3; Status: F Test: MONO #; Value: 0.5; Range: 0.0-0.8; Units: K/mm3; Status: F Test: EOS #; Value: 0.2; Range: 0.0-0.50; Units: K/mm3; Status: F Test: BASO #; Value: 0.2; Range: 0.0-0.2; Units: K/mm3; Status: F Test: LARGE UNSTAINED CELL #; Value: 0.2; Range: 0.0-0.4; Units: K/mm3; Status: F Lab Order: Lipase; SPEC'M 06/06/16 19:08 Test: LIPASE; Value: 135; Range: 73-393; Units: U/L; Status: F Lab Order: Liver Profile; SPEC'M 06/06/16 19:08 Test: AST/SGOT; Value: 14; Range: 15-37; Abnormal: Below low normal; Units: U/L; Status: F Test: ALT/SGPT; Value: 33; Range: 12-78; Units: U/L; Status: F Test: ALKALINE PHOSPHATASE; Value: 62; Range: 45-117; Units: U/L; Status: F Test: BILIRUBIN,TOTAL; Value: 0.3; Range: 0.2-1.0; Units: MG/DL; Status: F Test: BILIRUBIN,DIRECT; Value: < 0.1; Range: 0.0-0.2; Units: MG/DL; Status: F Test: TOTAL PROTEIN; Value: 7.7; Range: 6.4-8.2; Units: GM/DL; Status: F Test: ALBUMIN; Value: 3.9; Range: 3.2-5.2; Units: GM/DL; Status: F Test: ALBUMIN/GLOBULIN RATIO; Value: 1.03; Range: 1.00-1.93; Status: F Lab Order: Urinalysis; SPEC'M 06/06/16 19:04 Test: APPEARANCE, URINE; Value: CLOUDY; Range: CLEAR; Abnormal: Above high normal; Status: F Test: COLOR, URINE; Value: YELLOW; Range: YELLOW; Status: F Test: PH,URINE; Value: 7.0; Range: 5.0-9.0; Units: UNITS; Status: F Test: SPECIFIC GRAVITY URINE AUTO; Value: 1.014; Range: 1.002-1.035; Status: F Test: PROTEIN, URINE AUTO; Value: NEGATIVE; Range: NEGATIVE; Units: mg/dL; Status: F Test: GLUCOSE, URINE (UA) AUTO; Value: NEGATIVE; Range: NEGATIVE; Units: mg/dL; Status: F Test: KETONE, URINE AUTO; Value: NEGATIVE; Range: NEGATIVE; Units: mg/dL; Status: F Test: UROBILINOGEN, URINE AUTO; Value: 0.2; Range: 0.0-2.0; Units: mg/dL; Status: F Test: BILIRUBIN, URINE AUTO; Value: NEGATIVE; Range: NEGATIVE; Status: F Test: NITRITE, URINE AUTO; Value: NEGATIVE; Range: NEGATIVE; Status: F Test: LEUKOCYTE ESTERASE, URINE AUTO; Value: NEGATIVE; Range: NEGATIVE; Status: F Test: BLOOD, URINE BLOOD; Value: 1+; Range: NEGATIVE; Abnormal: Above high normal; Status: F Test: WBC, URINE AUTO; Value: 0; Range: 0-3; Units: /HPF; Status: F Test: RBC, URINE AUTO; Value: 3; Range: 0-3; Units: /HPF; Status: F Test: BACTERIA, URINE AUTO; Value: NEGATIVE; Range: NEGATIVE; Status: F Test: SQUAMOUS EPITHELIAL CELL UR AU; Value: 1; Range: 0-6; Units: /HPF; Status: F Test: HYALINE CAST, URINE AUTO; Value: 0; Range: 0-1; Units: /LPF; Status: F Test: AMORPHOUS SEDIMENT; Value: SMALL; Range: NEGATIVE; Abnormal: Above high normal; Status: F Lab Order: Urine Culture; SPEC'M 06/06/16 19:04 Test: URINE CULTURE; Value: URINE CULTURE RESULT SPECIMEN APPEARS CONTAMINATED; Status: F Radiology Order: CT ABD & PELVIS: No Contrast Test: CT ABD & PELVIS: No Contrast REASON FOR EXAMINATION: LEFT FLANK PAIN, HEMATURIA, R/O STONE; ; CLINICAL HISTORY: Left flank pain.; ; TECHNIQUE: Multiple axial CT images were obtained through the abdomen and pelvis without administrat; ion of oral or intravenous contrast material.; ; COMMENTS:; Comparison is made with prior CT abdomen and pelvis dated 08/29/2015.; ; There is normal hepatic hypoattenuation without mass. There is no intra or extrahepatic biliary duct; al dilatation. The spleen is normal. 1.7 cm splenic arterial aneurysm is again seen. The gallbladde; r is within normal limits. The pancreas is of normal contour and attenuation characteristics. There; is no evidence of adrenal mass.; ; Small hiatal hernia is present.; ; The kidneys are normal in size, shape and configuration. There is no evidence of renal or ureteral m; ass. No renal or ureteral calculi are identified. There is no hydroureter or hydronephrosis.; ; No evidence for appendicitis. There is evidence of circumferential wall thickening involving duodenu; m, loops of jejunum and ileum compatible with panenteritis. Infectious and inflammatory etiology is; considered. No evidence for small or large bowel obstruction. There is no evidence of abdominal asc; ites or lymphadenopathy.; ; Status post hysterectomy. Both ovaries appear to be present and unremarkable.; ; There is no evidence of intrinsic or extrinsic bladder mass. There is no pelvic ascites or lymphaden; opathy.; ; Images of the lung bases show no evidence of pleural or parenchymal mass. There are no pleural effus; ions. The bony structures are free of lytic or blastic lesions.; ; IMPRESSION:; 1. There is evidence of circumferential wall thickening involving duodenum, loops of jejunum and ile; um compatible with panenteritis. Infectious and inflammatory etiology is considered.; 2. 1.7 cm splenic arterial aneurysm is again seen.; ; Thank you for your kind referral of this patient. We appreciate the opportunity to participate in thi; s patient's care.; ; ; Outcome: 19:35 CT Study completed. ms18 21:19 Discharge ordered by Provider. ck7 21:26 Discharge Assessment: Patient awake, alert and oriented x 3. No cognitive and/or ms18 functional deficits noted. Patient verbalized understanding of disposition instructions. patient administered narcotics - no. The following High Risk Discharge criteria are identified: None. Discharged to home ambulatory. Condition: good Condition: stable Condition: improved. Discharge instructions given to patient, Instructed on discharge instructions, follow up and referral plans. medication usage, Demonstrated understanding of instructions, medications, Pt was receptive of discharge instructions/ teaching. Prescriptions given X 4. 21:27 Patient left the ED. ms18 Signatures: Dispatcher [employer] EDMS Sandra Molina, JULIUS MADRID dls Sarath Wilder Daniell, RESEARCH PHYSIOLOGIST RESEARCH PHYSIOLOGIST dd6 Flavia Bae RN RN rs3 Susan Baeza, RESEARCH PHYSIOLOGIST RESEARCH PHYSIOLOGIST ar3 Kaiden Colon, RPA-C RPA-Cck7 Yanique Olmedo LPN LPN slm Mitchell, Jessie, Safe Technician Unit Ami Ying RN RN ms18 Nanette Davidson LPN Chart Complete [facility]
== END 2016-06-06 21:27 | disposition home or self-care (01) ==
LOC: M ED 17:36
DX: R10.9 Unspecified abdominal pain (principal); M79.7 Fibromyalgia; K57.30 Diverticulosis of large intestine without perforation or abscess without bleeding; Z79.899 Other long term (current) drug therapy
CPT/HCPCS: 36415; 74176; 80048; 80076; 81001; 82150; 83690; 85025; 87086; 96361; 96374; 96375; 99284; J1885; J2405

== ENCOUNTER → 2016-09-17 | Outpatient (CLI) | payer BC ==
[2016-09-17 18:52] LABS: ALBUMIN 3.7 GM/DL (3.2-5.2); ALBUMIN/GLOBULIN RATIO 1.09 (1.00-1.93); ALKALINE PHOSPHATASE 60 U/L (45-117); ALT/SGPT 34 U/L (12-78); ANION GAP 9 MEQ/L (8-16); AST/SGOT 15 U/L (15-37); BILIRUBIN,TOTAL 0.7 MG/DL (0.2-1.0); BLOOD UREA NITROGEN 10 MG/DL (7-18); CALCIUM LEVEL 8.5 MG/DL (8.5-10.1); CARBON DIOXIDE LEVEL 26 MEQ/L (21-32); CHLORIDE LEVEL 104 MEQ/L (98-107); CREATININE FOR GFR 0.81 MG/DL (0.55-1.02); FREE T4 0.95 NG/DL (0.76-1.46); GLOMERULAR FILTRATION RATE > 60.0 (>60); GLUCOSE, FASTING 92 MG/DL (70-105); POTASSIUM SERUM 4.3 MEQ/L (3.5-5.1); SODIUM LEVEL 139 MEQ/L (136-145); TOTAL PROTEIN 7.1 GM/DL (6.4-8.2)
[2016-09-17 19:10] LABS: BASO # 0.1 K/mm3 (0.0-0.2); BASO % 0.7 % (0.0-1.0); EOS # 0.2 K/mm3 (0.0-0.50); EOS % 2.3 % (0.0-3.0); LARGE UNSTAINED CELL # 0.1 K/mm3 (0.0-0.4); LARGE UNSTAINED CELL % 1.8 % (0.0-4.0); LYMPH # 2.8 K/mm3 (1.5-4.5); MEAN CORPUSCULAR HEMOGLOBIN 29.6 pg (27.0-33.0); MEAN CORPUSCULAR HGB CONC 34.3 g/dl (32.0-36.5); MEAN CORPUSCULAR VOLUME 86.3 fl (80.0-96.0); MONO # 0.4 K/mm3 (0.0-0.8); MONO % 4.9 % (0.0-5.0); NEUTROPHILS # 4.1 K/mm3 (1.8-7.7); NEUTROPHILS % 53.3 % (36.0-66.0); PLATELET COUNT, AUTOMATED 296 k/mm3 (150-450); WHITE BLOOD COUNT 7.6 K/mm3 (4.0-10.0)
== END ==
LOC: M SMT 10:55
PROVIDERS: ATTEND Physician Assistant
DX: Z00.00 Encounter for general adult medical examination without abnormal findings (principal); R53.83 Other fatigue; R53.82 Chronic fatigue, unspecified

== ENCOUNTER → 2017-10-24 | Outpatient (CLI) | payer BC ==
[2017-10-24 12:55] LABS: BASO # 0.1 10^3/uL (0.0-0.2); BASO % 0.7 % (0.0-1.0); EOS # 0.2 10^3/uL (0.0-0.50); EOS % 2.2 % (0.0-3.0); HEMATOCRIT 40.8 % (36.0-47.0); IMMATURE GRANULOCYTE % 0.3 % (0-3.0); LYMPH # 2.5 10^3/uL (1.5-4.5); LYMPH % 36.8 % (24.0-44.0); MEAN CORPUSCULAR HEMOGLOBIN 28.8 pg (27.0-33.0); MEAN CORPUSCULAR HGB CONC 34.3 g/dl (32.0-36.5); MONO # 0.5 10^3/uL (0.0-0.8); MONO % 6.7 % (0.0-5.0); NEUTROPHILS # 3.7 10^3/uL (1.8-7.7); NEUTROPHILS % 53.3 % (36.0-66.0); PLATELET COUNT, AUTOMATED 339 10^3/uL (150-450); RED BLOOD COUNT 4.86 10^6/uL (4.00-5.40); WHITE BLOOD COUNT 6.9 10^3/uL (4.0-10.0)
[2017-10-24 13:34] LABS: TOTAL 25(OH) VITAMIN D 11.7 NG/ML (30.0-100.0)
[2017-10-24 13:42] LABS: ALBUMIN 3.9 GM/DL (3.2-5.2); ALBUMIN/GLOBULIN RATIO 1.05 (1.00-1.93); ALKALINE PHOSPHATASE 69 U/L (45-117); ALT/SGPT 35 U/L (12-78); ANION GAP 5 MEQ/L (8-16); AST/SGOT 18 U/L (7-37); BILIRUBIN,TOTAL 0.7 MG/DL (0.2-1.0); BLOOD UREA NITROGEN 14 MG/DL (7-18); CALCIUM LEVEL 8.8 MG/DL (8.5-10.1); CARBON DIOXIDE LEVEL 28 MEQ/L (21-32); CHLORIDE LEVEL 109 MEQ/L (98-107); CREATININE FOR GFR 0.78 MG/DL (0.55-1.30); FREE T4 0.96 NG/DL (0.76-1.46); GLOMERULAR FILTRATION RATE > 60.0 (>60); GLUCOSE, FASTING 83 MG/DL (70-100); POTASSIUM SERUM 4.3 MEQ/L (3.5-5.1); SODIUM LEVEL 142 MEQ/L (136-145); THYROID STIMULATING HORMONE 0.529 uIU/ML (0.358-3.740); TOTAL PROTEIN 7.6 GM/DL (6.4-8.2)
== END ==
LOC: M LAB 11:55
DX: E55.9 Vitamin D deficiency, unspecified (principal); R53.83 Other fatigue

== ENCOUNTER 2017-11-24 16:29 | Emergency (ER) | payer BC ==
[2017-11-24] MEDS: PERCOCET 5MG/325MG TAB PO (17:52)
[2017-11-24 17:56] LABS: HEMATOCRIT 41.5 % (36.0-47.0); HEMOGLOBIN 14.7 g/dl (12.0-15.5); MEAN CORPUSCULAR HEMOGLOBIN 29.1 pg (27.0-33.0); MEAN CORPUSCULAR HGB CONC 35.4 g/dl (32.0-36.5); PLATELET COUNT, AUTOMATED 313 10^3/uL (150-450); RED BLOOD COUNT 5.06 10^6/uL (4.00-5.40); RED CELL DISTRIBUTION WIDTH 12.2 % (11.5-14.5); WHITE BLOOD COUNT 9.4 10^3/uL (4.0-10.0)
[2017-11-24] MEDS: BACLOFEN 10 MG TAB PO (17:56)
[2017-11-24 18:24] LABS: ANION GAP 12 MEQ/L (8-16); BLOOD UREA NITROGEN 10 MG/DL (7-18); CALCIUM LEVEL 8.7 MG/DL (8.5-10.1); CARBON DIOXIDE LEVEL 23 MEQ/L (21-32); CHLORIDE LEVEL 107 MEQ/L (98-107); CREATININE FOR GFR 0.76 MG/DL (0.55-1.30); GLOMERULAR FILTRATION RATE > 60.0 (>60); GLUCOSE, FASTING 90 MG/DL (70-100); POTASSIUM SERUM 3.5 MEQ/L (3.5-5.1); SODIUM LEVEL 142 MEQ/L (136-145)
[2017-11-24] MEDS: MORPHINE 10 MG/ML 1ML VIAL (J2270) IM (19:53)
[2017-11-24] MEDS: diazePAM 5 MG TAB PO (20:54)
== END 2017-11-24 21:22 | disposition home or self-care (01) ==
LOC: M ED 16:29
DX: M54.5 Low back pain (principal); K21.9 Gastro-esophageal reflux disease without esophagitis; F41.9 Anxiety disorder, unspecified; F33.9 Major depressive disorder, recurrent, unspecified; G47.00 Insomnia, unspecified; K44.9 Diaphragmatic hernia without obstruction or gangrene; Z79.899 Other long term (current) drug therapy; Z88.8 Allergy status to other drugs, medicaments and biological substances
CPT/HCPCS: J2270

== ENCOUNTER → 2018-02-06 | Outpatient (CLI) | payer BC ==
[2018-02-06 18:37] LABS: ESTIMATED AVERAGE GLUCOSE 97 MG/DL (60-110)
[2018-02-06 19:04] LABS: ALBUMIN/GLOBULIN RATIO 1.03 (1.00-1.93); ALKALINE PHOSPHATASE 68 U/L (45-117); ALT/SGPT 39 U/L (12-78); ANION GAP 10 MEQ/L (8-16); AST/SGOT 19 U/L (7-37); BILIRUBIN,TOTAL 0.9 MG/DL (0.2-1.0); BLOOD UREA NITROGEN 12 MG/DL (7-18); CARBON DIOXIDE LEVEL 23 MEQ/L (21-32); CHLORIDE LEVEL 106 MEQ/L (98-107); CREATININE FOR GFR 0.82 MG/DL (0.55-1.30); ESTRADIOL 73.1 PG/ML; FOLLICLE STIMULATING HORMONE 1.7 mIU/mL; GLOMERULAR FILTRATION RATE > 60.0 (>60); GLUCOSE, FASTING 90 MG/DL (70-100); LUTEINIZING HORMONE 1.4 mIU/mL; POTASSIUM SERUM 3.9 MEQ/L (3.5-5.1); SODIUM LEVEL 139 MEQ/L (136-145); TOTAL PROTEIN 7.9 GM/DL (6.4-8.2)
[2018-02-08 14:16] LABS: INSULIN LEVEL 16.8 uIU/mL (2.6-24.9)
[2018-02-10 00:07] LABS: TESTOSTERONE FREE (DIRECT) 1.4 pg/mL (0.0-4.2)
== END ==
LOC: M SMT 14:09
DX: L70.8 Other acne (principal); L68.0 Hirsutism
CPT/HCPCS: 83001

== ENCOUNTER → 2018-11-17 | Outpatient (CLI) | payer BC ==
[~2018-11-17] MED LIST changes: +BUPR150T3; +DULO1CAP3; +PERC5TAB12 PO; +ROBA500T PO; +VITA100054 PO; +VITA50005; +ZOLP12.515
[2018-11-17 10:36] LABS: BASO # 0.1 10^3/uL (0.0-0.2); BASO % 0.9 % (0.0-1.0); EOS # 0.2 10^3/uL (0.0-0.50); EOS % 1.9 % (0.0-3.0); HEMATOCRIT 42.9 % (36.0-47.0); HEMOGLOBIN 14.5 g/dl (12.0-15.5); LYMPH # 2.4 10^3/uL (1.5-4.5); LYMPH % 30.9 % (24.0-44.0); MEAN CORPUSCULAR HEMOGLOBIN 28.5 pg (27.0-33.0); MEAN CORPUSCULAR HGB CONC 33.8 g/dl (32.0-36.5); MEAN CORPUSCULAR VOLUME 84.3 fl (80.0-96.0); MONO # 0.4 10^3/uL (0.0-0.8); MONO % 5.2 % (0.0-5.0); NEUTROPHILS # 4.8 10^3/uL (1.8-7.7); NEUTROPHILS % 60.8 % (36.0-66.0); PLATELET COUNT, AUTOMATED 329 10^3/uL (150-450); RED BLOOD COUNT 5.09 10^6/uL (4.00-5.40); WHITE BLOOD COUNT 7.9 10^3/uL (4.0-10.0)
[2018-11-17 11:04] LABS: ERYTHROCYTE SEDIMENTATION RATE 11 mm/hr (0-20)
[2018-11-17 11:16] LABS: ALBUMIN 3.8 GM/DL (3.2-5.2); ALT/SGPT 41 U/L (12-78); BILIRUBIN,TOTAL 0.5 MG/DL (0.2-1.0); BLOOD UREA NITROGEN 10 MG/DL (7-18); C REACTIVE PROTEIN QUANTITATIV 0.54 MG/DL (0.00-0.30); CALCIUM LEVEL 8.2 MG/DL (8.5-10.1); CARBON DIOXIDE LEVEL 27 MEQ/L (21-32); CHLORIDE LEVEL 108 MEQ/L (98-107); CREATININE FOR GFR 0.76 MG/DL (0.55-1.30); FREE T4 0.81 NG/DL (0.76-1.46); GLOMERULAR FILTRATION RATE > 60.0 (>60); GLUCOSE, FASTING 94 MG/DL (70-100); RHEUMATOID FACTOR QUANT < 10.0 IU/ML (<15.0); SODIUM LEVEL 139 MEQ/L (136-145); THYROID STIMULATING HORMONE 0.575 uIU/ML (0.358-3.740); TOTAL 25(OH) VITAMIN D 16.4 NG/ML (30.0-100.0); TOTAL PROTEIN 7.5 GM/DL (6.4-8.2)
[2018-11-19 00:07] LABS: ANA (HEP2) Negative (.); CYCLIC CITRULLINATED PEPTIDE 7 units (0-19)
== END ==
LOC: M LAB 09:38
PROVIDERS: ATTEND Physician Assistant
DX: M79.7 Fibromyalgia (principal); E55.9 Vitamin D deficiency, unspecified

== ENCOUNTER → 2019-03-16 | Outpatient (CLI) | payer BC ==
[~2019-03-16] MED LIST changes: -DULO1CAP3; +DULO1CAP6
[2019-03-16 13:43] LABS: BASO # 0.1 10^3/uL (0.0-0.2); BASO % 0.8 % (0.0-1.0); EOS # 0.2 10^3/uL (0.0-0.5); EOS % 2.2 % (0.0-3.0); HEMATOCRIT 45.5 % (36.0-47.0); HEMOGLOBIN 15.5 g/dl (12.0-15.5); LYMPH # 2.5 10^3/uL (1.5-5.0); LYMPH % 30.5 % (24.0-44.0); MEAN CORPUSCULAR HEMOGLOBIN 29.4 pg (27.0-33.0); MEAN CORPUSCULAR HGB CONC 34.1 g/dl (32.0-36.5); MEAN CORPUSCULAR VOLUME 86.3 fl (80.0-96.0); MONO # 0.5 10^3/uL (0.0-0.8); MONO % 6.1 % (0.0-5.0); NEUTROPHILS % 60.2 % (36.0-66.0); PLATELET COUNT, AUTOMATED 327 10^3/uL (150-450); RED BLOOD COUNT 5.27 10^6/uL (4.00-5.40); WHITE BLOOD COUNT 8.3 10^3/uL (4.0-10.0)
[2019-03-16 14:11] LABS: FOLATE 13.4 NG/ML; TOTAL 25(OH) VITAMIN D 26.4 NG/ML (30.0-100.0)
== END ==
LOC: M LAB 12:43
PROVIDERS: ATTEND Physician Assistant
DX: F45.8 Other somatoform disorders (principal)

== ENCOUNTER → 2019-06-19 | Outpatient (CLI) | payer BC ==
[~2019-06-19] MED LIST changes: +GLUCAGON FOR INJ 1 MG VIAL (J1610) As Ordered ONE; +ISOVUE-370 76% 100ML VIAL (Q9967) As Ordered ONE; +VoLumen 0.1% SUSPENSION 450ML BOTTLE As Ordered ONE
--- NOTE | 2019-06-20 06:04 | REP ---
Clinical: Follow up abnormal findings. Technique: Axial contrast enhanced images from the lung bases to the pubic symphysis with coronal and sagittal re-formations using low density oral and 100 ml Isovue 370 intravenous contrast material. Images obtained in arterial and portal venous phase of enhancement. Comparison: 06/06/2016. Findings: Mild hepatomegaly and fatty infiltration to the liver suggested without focal hepatic lesion identified. Spleen, pancreas, gallbladder, bilateral adrenal glands and kidneys are normal. The enteric system is without obstruction or acute inflammatory process. Scattered sigmoid diverticula noted without acute diverticulitis. Normal terminal ileum and appendix identified in the right lower quadrant. Pelvis demonstrates normal bladder and evidence for prior partial hysterectomy. No ascites. No free air. No adenopathy. 1 cm fat containing periumbilical hernia again noted. 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 The aorta is without aneurysm or dissection. Musculoskeletal structures are intact. Impression: 1. Mild hepatomegaly and fatty infiltration to the liver suggested. 2. Stable 1.7 cm splenic artery aneurysm. 3. Stable 1 cm fat containing periumbilical hernia. 4. No further acute abdominopelvic pathology appreciated. Electronically Signed by Jose David Talley MD 06/20/2019 05:56 A
== END ==
LOC: M RAD 12:16
PROVIDERS: ATTEND Internal Medicine Gastroenterology
DX: K76.0 Fatty (change of) liver, not elsewhere classified (principal); K42.9 Umbilical hernia without obstruction or gangrene; R16.0 Hepatomegaly, not elsewhere classified; I72.8 Aneurysm of other specified arteries
CPT/HCPCS: 74177; J1610; Q9967

== ENCOUNTER → 2019-10-22 | Outpatient (CLI) | payer BC ==
[~2019-10-22] MED LIST changes: -GLUCAGON FOR INJ 1 MG VIAL (J1610) As Ordered ONE; +ISOVUE-300 61% 50ML VIAL As Ordered ONE; -ISOVUE-370 76% 100ML VIAL (Q9967) As Ordered ONE; +ISOVUE-370 76% 100ML VIAL As Ordered ONE; +LIDOCAINE 1% MDV 20ML VIAL As Ordered ONE; +MIDAZOLAM INJ 2MG/2ML VIAL (J2250 PER 1MG) As Ordered ONE; +OXYC1TAB23 PO; +PERCOCET 5MG/325MG TAB As Ordered ONE; +PREG25CA PO; +REST30CA PO; +VITA50005 PO; -VoLumen 0.1% SUSPENSION 450ML BOTTLE As Ordered ONE; +fentaNYL 100 MCG/2 ML INJECTION (J3010) As Ordered ONE
[2019-10-22 09:54] LABS: HEMOGLOBIN 14.9 g/dl (12.0-15.5); MEAN CORPUSCULAR HEMOGLOBIN 29.5 pg (27.0-33.0); MEAN CORPUSCULAR HGB CONC 34.7 g/dl (32.0-36.5); MEAN CORPUSCULAR VOLUME 85.1 fl (80.0-96.0); PLATELET COUNT, AUTOMATED 295 10^3/uL (150-450); RED BLOOD COUNT 5.05 10^6/uL (4.00-5.40); WHITE BLOOD COUNT 5.6 10^3/uL (4.0-10.0)
[2019-10-22 10:22] LABS: BLOOD UREA NITROGEN 15 MG/DL (7-18); CALCIUM LEVEL 8.9 MG/DL (8.5-10.1); CARBON DIOXIDE LEVEL 26 MEQ/L (21-32); CHLORIDE LEVEL 109 MEQ/L (98-107); CREATININE FOR GFR 0.74 MG/DL (0.55-1.30); GLOMERULAR FILTRATION RATE > 60.0 (>60); GLUCOSE, FASTING 96 MG/DL (70-100); POTASSIUM SERUM 3.5 MEQ/L (3.5-5.1); SODIUM LEVEL 143 MEQ/L (136-145)
[2019-10-22 15:36] VITALS: BP 125/81
--- NOTE | 2019-10-22 15:43 | REP ---
CT ANGIOGRAM ABDOMEN AND PELVIS: CT angiogram of the abdomen and pelvis performed following the intravenous administration of 75 mL Isovue 370. Sagittal, coronal and 3D MIP reconstruction images are performed. Today the patient had embolization of a splenic artery aneurysm. She complains of pain. Comparison made with a prior study of 06/19/2019. Visualized lung bases are clear. There is again evidence of fatty infiltration of the liver. The gallbladder is grossly unremarkable. Adrenal glands are normal. Pancreas is unremarkable. Kidneys are unremarkable. There is no abdominal aortic aneurysm. There is evidence of metallic coils in the region of the previously noted splenic artery aneurysm. There is no extravasation of contrast in this region, nor is there evidence of free fluid in the abdomen or pelvis. There is no adenopathy. There is no free air. There is no bowel abnormality. The appendix is normal. No pelvic mass is seen. There is mild distention of the urinary bladder which appears unremarkable. The spleen demonstrates heterogeneous enhancement. There is a hypodense area in the anterior superior aspect of the spleen which could potentially represent an early small splenic infarct. IMPRESSION: Metallic coils in the previously identified splenic artery aneurysm. No evidence of extravasation or free fluid. There is a hypodense area in the anterior superior aspect of the spleen which could potentially represent an early small splenic infarct. Electronically Signed by Jason Xiao MD 10/23/2019 01:35 P
--- NOTE | 2019-10-22 19:11 | ROOPDOC ---
[facility] Report Of Operation Report of Operation DATE OF PROCEDURE: 10/22/19 PREPROCEDURE DIAGNOSES: Symptomatic saccular 2.1 cm splenic artery aneurysm POSTPROCEDURE DIAGNOSES: Same PROCEDURE: 1. Ultrasound-guided access right common femoral artery 2. Mesenteric arteriogram 3. Selection of celiac artery 4. Selection of splenic artery and splenic artery aneurysm 5. Splenic arteriogram 6. Coiling of splenic artery aneurysm 7. Completion arteriogram 8. Mynx closure right common femoral artery SURGEON: Papito Crawford MD ANESTHESIA: Local anesthesia 10 mL lidocaine. Moderate intravenous conscious sed ation was supervised by Dr. Crawford. The patient was intermittently monitored by a registered nurse assigned to the Department of radiology using automated blood pressure, EKG, and pulse oximetry. The detailed sedation record is permanently stored in the hospital information system. The following is a brief sedation record: Start time 10:16, stop time 12:21, Versed 1.5 mg, fent anyl 75 g, heparin 3000 units IV. CONTRAST: 62 mL Isovue-300 INDICATION FOR PROCEDURE: This is a very pleasant 39-year-old patient with a 2.1 cm saccular splenic artery aneurysm. The aneurysm is stable in size and has not been growing, however after lengthy discussion with the patient, she has had multiple ER admissions for left upper quadrant all aching abdominal pain, and extensive workups with each visit have not yielded a source. It is certainly possible that her pain could be related to the aneurysm. I did discuss with her at length that it is also possible it is not related to the aneurysm, in which case coiling it will not solve her pain issues. However, since no other source can be identified, I think it is important that we rule out the aneurysm is a source of her pain by treating it. Risks benefits and alternatives to a mesenteric arteriogram and coiling the splenic artery aneurysm were explained to the patient and she is agreeable to proceed. Informed consent was obtained. INTERPRETATION: 1. The aorta is widely patent at the mesenteric's, and there is widely patent inflow through the celiac artery and the SMA. No stenosis is noted at the origin of either vessel. The splenic artery is somewhat tortuous, and there is a saccular aneurysm in the midportion of the artery, nonruptured, with flow distal through the tortuous splenic artery into the hilum of the spleen. 2. Selection of the celiac artery and splenic artery were confirmed with arteriograms. Selection of the splenic artery aneurysm was also confirmed with arteriogram. 3. The aneurysm was successfully coiled with an AZUR framing coil and 3 AZUR cx detachable coils 4. No extravasation, embolization, or dissections were noted on final arteriograms after coiling REPORT OF OPERATION: Patient was brought to the angiographic suite in stable condition and placed supine on the fluoroscopic table. Her bilateral groins were prepped and draped in a sterile fashion. A timeout was performed. Sedation was administered without complication. Local anesthesia was administered to the skin and subcutaneous tissue over the right groin and a microneedle was used to access the right common femoral artery under ultrasound guidance. A wire was passed through this access and the needle was removed. A 4 [place] sheath was placed and flushed with saline. A Glidewire and conjugate catheter were advanced into the suprarenal aorta and lateral views of the mesenteric arteries were performed. Please interpretation above. We then navigated the Glidewire into the celiac artery and then into the splenic artery under fluoroscopic guidance. 4 [place] sheath was removed and a 70 cm 6 [place] sheath was placed with the tip of the sheath into the origin of the celiac artery to stabilize the arterial selection. This was flushed with saline. We then advanced a glide cath over the Glidewire into the aneurysm. We confirmed we are in the aneurysm with a quick contrast injection. We attempted to place a framing coil through the glide cath, but were unsuccessful. We thought the coil might passed easier through a 4 [place] instead of a 5 [place] catheter, and therefore this was exchanged over a wire, and we confirmed we are again within the aneurysm with a quick contrast injection. We attempted to deploy second framing coil through the 4 [place] glide cath, but were again unsuccessful. At this point, I felt it was likely due to the tortuosity of the vessel and possibly the angle of the sheath at the celiac axis. We therefore tried again to place a framing coil with a Progreat catheter through the glide cath, but there still was too much angulation and tortuosity. We then removed the catheters, and over the wire we placed a 90 cm MACH1 MP catheter which successfully straightened out the origin of the celiac vessel, and the 360 turn in the splenic artery proximal to the aneurysm. We were able to advance the catheter to the origin of the aneurysm. Through this, we were able to advance an O18 wire and appropriate catheter into the aneurysm sac. We were then able to successfully deploy a framing coil and 3 additional AZUR cx coils. Arteriograms that completion showed successful coiling of the aneurysm with no arterial dissection, no extravasation, no distal splenic embolization. We then removed the catheters over a wire. We removed the sheath over wire and exchange it for short 6 [place] sheath, and then a Mynx closure device was deployed in the right common femoral artery under fluoroscopic guidance with good hemostasis. Pressure was held for 10 minutes and sterile dressings were applied. The patient was then taken to recovery in stable condition. She tolerated the procedure and the sedation well. However, about an hour after the procedure, the patient had significant left upper quadrant pain. To ensure there was no new complication from the procedure, a CTA of the abdomen and pelvis was obtained and reviewed. Again we saw successful coiling of the left splenic aneurysm, and no extravasation, no arterial embolization, no dissection, and no additional arterial injury. The patient did have a lot of bowel gas, and about 30 minutes later she had an episode of emesis. Following this, she said she felt much better and believes her pain was due to bowel gas. She was then monitored for the rest of her postprocedure bed rest, and discharged home in stable condition, feeling well. ESTIMATED BLOOD LOSS: Approximately 5 mL. COMPLICATIONS: None PLAN: We will see the patient back in a week to check her groin access site and see how she is doing. Because she has to do a lot of lifting at work, we like her to be off of work for 3 days to allow herself to recover. She should have no lifting more than 5 pounds and no strenuous exercise for 48 hours, and then an additional day for recovery, and then she can return to work without restrictions. We will give her a small prescription for Percocet to help with any pain associated with coiling of the aneurysm. She should resume her home diet medications. We appreciate the opportunity to participate in the care of this patient. PAPITO CRAWFORD MD Oct 22, 2019 19:11
== END ==
LOC: M IRPRO 08:46
PROVIDERS: ATTEND Surgery Vascular Surgery
DX: I72.8 Aneurysm of other specified arteries (principal)

== ENCOUNTER → 2019-10-29 | Outpatient (CLI) | payer BC ==
[~2019-10-29] MED LIST changes: -ISOVUE-300 61% 50ML VIAL As Ordered ONE; -ISOVUE-370 76% 100ML VIAL As Ordered ONE; -LIDOCAINE 1% MDV 20ML VIAL As Ordered ONE; -MIDAZOLAM INJ 2MG/2ML VIAL (J2250 PER 1MG) As Ordered ONE; -PERCOCET 5MG/325MG TAB As Ordered ONE; -ZOLP12.515; +ZOLP12.518; -fentaNYL 100 MCG/2 ML INJECTION (J3010) As Ordered ONE
== END ==
LOC: M LABSMTC 12:48
PROVIDERS: ATTEND Anesthesiology
DX: Z03.818 Encounter for observation for suspected exposure to other biological agents ruled out (principal); Z11.59 Encounter for screening for other viral diseases
CPT/HCPCS: C9803; U0003

== ENCOUNTER → 2020-06-01 | Outpatient (CLI) | payer SELFPAY | LOC: M LABSMTC 09:55 | PROVIDERS: ATTEND Pediatrics | DX: Z20.822 Contact with and (suspected) exposure to COVID-19 (principal) ==

== ENCOUNTER 2020-08-13 23:50 | Emergency (ER) | payer BC ==
[~2020-08-13] VITALS: Ht 170.2 cm; Wt 90.0 kg
[~2020-08-13 23:50] MED LIST changes: +BUPR150T12; -BUPR150T3
[2020-08-13 23:51] VITALS: BP 127/88
[2020-08-14] MEDS ORDERED: NAPR-885 (00:05)
[2020-08-14] MEDS ORDERED: TEMA30CA (00:05)
[2020-08-14] MEDS ORDERED: PREG25CA2 (00:05)
[2020-08-14] MEDS ORDERED: CYCL-707 (00:05)
--- NOTE | 2020-08-14 02:31 | REPVR ---
PROCEDURE INFORMATION: Exam: XR Left Shoulder Exam date and time: 08/14/2020 1:34 AM Age: 40 years old Clinical indication: Pain; Shoulder; Left; Additional info: No injury but pain in shoulder TECHNIQUE: Imaging protocol: XR Left shoulder. Views: 2 or more views. Transscapular view was also included. COMPARISON: No relevant prior studies available. FINDINGS: Bones/joints: Normal. No acute fracture. No dislocation. Soft tissues: Normal. IMPRESSION: No acute fracture. Electronically signed by: Gail Rowan On 08/14/2020 02:30:27 AM
== END 2020-08-14 03:16 | disposition home or self-care (01) ==
LOC: M ED 23:50
DX: M25.512 Pain in left shoulder (principal); M79.7 Fibromyalgia; Z77.098 Contact with and (suspected) exposure to other hazardous, chiefly nonmedicinal, chemicals

== ENCOUNTER → 2020-10-16 | Outpatient (CLI) | payer BC ==
[~2020-10-16] MED LIST changes: +CYCL-707; +NAPR-885; +PREG25CA2; +TEMA30CA
--- NOTE | 2020-10-16 14:30 | REP ---
INDICATION: LOW BACK PAIN COMPARISON: None. TECHNIQUE: AP, lateral, bilateral oblique, and coned-down views of the lumbar spine. FINDINGS: Alignment and lordosis maintained. Vertebral bodies are intact. No acute fracture/compression injury or subluxation. Endplate sclerosis with marginal spurring and disc space narrowing at L5-S1. Remainder of the examination is essentially age-appropriate. Vascular coil identified in the left upper quadrant. IMPRESSION: Focal degenerative changes at L5-S1. <Electronically signed by Jose David Talley > 10/16/20 [id number]
== END ==
LOC: M WUC 14:07
PROVIDERS: ATTEND Physician Assistant
DX: M54.5 Low back pain (principal)

== ENCOUNTER → 2021-04-03 | Outpatient (CLI) | payer BC ==
[~2021-04-03] MED LIST changes: +ERGO500029 PO; -VITA50005 PO
--- NOTE | 2021-04-03 10:15 | REP ---
INDICATION: [facility] EXAM W/O ABNORMAL FINDINGS. COMPARISON: 10/16/2020 TECHNIQUE: Seven views with bending views FINDINGS: Vertebral body height and alignment is unchanged. Flexion and extension bending views show no evidence of instability. There is disc space narrowing at every level status quo. This is seen particularly at L5-S1 which is stable. No spondylolysis or spondylolisthesis has developed. The pedicles are again seen to be intact bilaterally. IMPRESSION: No acute abnormality. Stable chronic changes as described above. <Electronically signed by Kye Irving > 04/03/21 101
--- NOTE | 2021-04-03 10:23 | REP ---
INDICATION: [facility] EXAM W/O ABNORMAL FINDINGS. COMPARISON: None. TECHNIQUE: Four views total FINDINGS: Four views of the sacroiliac joints show them to be non-fused. There is no lysis or sclerosis of either the sacral or iliac side of either SI joint. There is no evidence of whiskering. There is no prominent osteophytosis. IMPRESSION: SI joints within normal limits. <Electronically signed by Kye Irving > 04/03/21 [id number]
[2021-04-03 13:27] LABS: BASO # 0.1 10^3/uL (0.0-0.2); BASO % 0.8 % (0.0-1.0); EOS # 0.1 10^3/uL (0.0-0.5); EOS % 1.6 % (0.0-3.0); HEMATOCRIT 42.6 % (36.0-47.0); HEMOGLOBIN 14.1 g/dl (12.0-15.5); LYMPH # 2.8 10^3/uL (1.5-5.0); LYMPH % 35.7 % (24.0-44.0); MEAN CORPUSCULAR HEMOGLOBIN 28.7 pg (27.0-33.0); MEAN CORPUSCULAR HGB CONC 33.1 g/dl (32.0-36.5); MEAN CORPUSCULAR VOLUME 86.6 fl (80.0-96.0); MONO # 0.5 10^3/uL (0.0-0.8); MONO % 6.8 % (2.0-8.0); NEUTROPHILS # 4.3 10^3/uL (1.5-8.5); NEUTROPHILS % 54.8 % (36.0-66.0); PLATELET COUNT, AUTOMATED 333 10^3/uL (150-450); RED BLOOD COUNT 4.92 10^6/uL (4.00-5.40); WHITE BLOOD COUNT 7.9 10^3/uL (4.0-10.0)
[2021-04-03 14:07] LABS: ALBUMIN 3.7 GM/DL (3.2-5.2); ALT/SGPT 42 U/L (12-78); BILIRUBIN,TOTAL 0.8 MG/DL (0.2-1.0); BLOOD UREA NITROGEN 14 MG/DL (7-18); CALCIUM LEVEL 8.8 MG/DL (8.5-10.1); CARBON DIOXIDE LEVEL 26 MEQ/L (21-32); CHLORIDE LEVEL 107 MEQ/L (98-107); CHOLESTEROL LEVEL 194 MG/DL (<200); CHOLESTEROL RISK RATIO 2.455 (<5); CREATININE FOR GFR 0.76 MG/DL (0.55-1.30); FREE T4 0.95 NG/DL (0.76-1.46); GLOMERULAR FILTRATION RATE > 60.0 (>58); GLUCOSE, FASTING 94 MG/DL (70-100); HDL CHOLESTEROL 79 MG/DL (>40); LDL CHOLESTEROL 91 MG/DL (<100); NON-HDL-C 115 MG/DL; POTASSIUM SERUM 4.2 MEQ/L (3.5-5.1); SODIUM LEVEL 140 MEQ/L (136-145); THYROID STIMULATING HORMONE 0.639 uIU/ML (0.358-3.740); TOTAL PROTEIN 7.2 GM/DL (6.4-8.2); TRIGLYCERIDES LEVEL 118 MG/DL (<150)
[2021-04-03 14:08] LABS: TOTAL 25(OH) VITAMIN D 18.5 NG/ML (30.0-100.0)
== END ==
LOC: M PLAIMG 09:22
PROVIDERS: ATTEND Physician Assistant
DX: Z00.00 Encounter for general adult medical examination without abnormal findings (principal); R53.83 Other fatigue; Z13.220 Encounter for screening for lipoid disorders; E55.9 Vitamin D deficiency, unspecified; M54.50 Low back pain, unspecified; M48.07 Spinal stenosis, lumbosacral region; M48.061 Spinal stenosis, lumbar region without neurogenic claudication

== ENCOUNTER → 2021-05-26 | Outpatient (CLI) | payer OTHER ==
--- NOTE | 2021-05-26 08:44 | REP ---
INDICATION: SCREEN MAMMO. COMPARISON: None. TECHNIQUE: MLO and CC views bilateral breasts with tomosynthesis. FINDINGS: There is mild to moderate heterogeneous fibroglandular tissue bilaterally. In the upper-outer quadrant of the left breast there is a 1 cm nodular opacity which is partially well-defined. In the CC projection anteromedially in the left breast a 7 mm nodular density is suspected. This is not seen in the MLO projection. No clustered microcalcifications are seen bilaterally. The Volpara volumetric breast density pattern is A. IMPRESSION: BIRADS/ACR category 0, incomplete.In the upper-outer quadrant of the left breast there is a 1 cm nodular opacity which is partially well-defined. In the CC projection anteromedially in the left breast a 7 mm nodular density is suspected. This is not seen in the MLO projection. Recommend spot compression views and ultrasound left breast to further evaluate. This patient's [facility] lifetime breast cancer risk assessment score is 15.3%. This mammogram was interpreted with the aid of an FDA-approved computer-aided detection system. The patient states she had a clinical breast exam in over 1 year ago. The patient letter being requested is M0. RECOMMENDATION: Recommend spot compression views and ultrasound left breast as discussed above. <Electronically signed by Jason Xiao > 05/26/21 [id number]
== END ==
LOC: M WHC 06:56
PROVIDERS: ATTEND Physician Assistant
DX: R92.2 Inconclusive mammogram (principal)

== ENCOUNTER → 2021-06-17 | Outpatient (CLI) | payer OTHER | LOC: M WHC 07:39 | PROVIDERS: ATTEND Family Medicine | DX: N63.23 Unspecified lump in the left breast, lower outer quadrant (principal); N63.21 Unspecified lump in the left breast, upper outer quadrant | CPT/HCPCS: 76642; 77065; G0279 ==

== ENCOUNTER → 2021-07-09 | Outpatient (CLI) | payer OTHER ==
[~2021-07-09] MED LIST changes: +**SFHN** LIDOCAINE 1% MDV 20ML VIAL ONE; +**SFHN** SODIUM BICARBONATE 8.4% 10MEQ 10ML VIAL ONE; +BUPR150T12 PO; +NOXI1TAB PO
[2021-07-09 10:51] VITALS: BP 128/80
== END ==
LOC: M WHCPRO 08:28
PROVIDERS: ATTEND Family Medicine
DX: N60.89 Other benign mammary dysplasias of unspecified breast (principal); N60.19 Diffuse cystic mastopathy of unspecified breast
CPT/HCPCS: 19083; 77065; 88305; G0279

== ENCOUNTER → 2022-02-08 | Outpatient (CLI) | payer OTHER ==
[~2022-02-08] MED LIST changes: -**SFHN** LIDOCAINE 1% MDV 20ML VIAL ONE; -**SFHN** SODIUM BICARBONATE 8.4% 10MEQ 10ML VIAL ONE
[2022-02-08 15:51] LABS: BASO % 0.7 % (0.0-1.0); EOS # 0.1 10^3/uL (0.0-0.5); EOS % 1.2 % (0.0-3.0); HEMATOCRIT 43.8 % (36.0-47.0); HEMOGLOBIN 14.3 g/dl (12.0-15.5); LYMPH # 1.8 10^3/uL (1.5-5.0); MEAN CORPUSCULAR HGB CONC 32.6 g/dl (32.0-36.5); MEAN CORPUSCULAR VOLUME 88.8 fl (80.0-96.0); MONO # 0.6 10^3/uL (0.0-0.8); NEUTROPHILS # 3.4 10^3/uL (1.5-8.5); NEUTROPHILS % 56.9 % (36.0-66.0); PLATELET COUNT, AUTOMATED 342 10^3/uL (150-450); RED BLOOD COUNT 4.93 10^6/uL (4.00-5.40); WHITE BLOOD COUNT 5.9 10^3/uL (4.0-10.0)
[2022-02-08 17:00] LABS: ALBUMIN 3.9 GM/DL (3.2-5.2); ALT/SGPT 26 U/L (12-78); BLOOD UREA NITROGEN 13 MG/DL (7-18); CALCIUM LEVEL 9.4 MG/DL (8.5-10.1); CARBON DIOXIDE LEVEL 27 MEQ/L (21-32); CHLORIDE LEVEL 106 MEQ/L (98-107); CHOLESTEROL LEVEL 169 MG/DL (<200); CHOLESTEROL RISK RATIO 2.194 (<5); CREATININE FOR GFR 0.78 MG/DL (0.55-1.30); FREE T4 1.04 NG/DL (0.76-1.46); GLOMERULAR FILTRATION RATE > 60.0 (>58); GLUCOSE, FASTING 88 MG/DL (70-100); HDL CHOLESTEROL 77 MG/DL (>40); LDL CHOLESTEROL 71 MG/DL (<100); NON-HDL-C 92 MG/DL; POTASSIUM SERUM 4.3 MEQ/L (3.5-5.1); SODIUM LEVEL 139 MEQ/L (136-145); THYROID STIMULATING HORMONE 0.256 uIU/ML (0.358-3.740); TOTAL PROTEIN 7.6 GM/DL (6.4-8.2); TRIGLYCERIDES LEVEL 106 MG/DL (<150)
[2022-02-08 17:21] LABS: TOTAL 25(OH) VITAMIN D 27.9 NG/ML (30.0-100.0)
== END ==
LOC: M PLALAB 11:36
PROVIDERS: ATTEND Family Medicine
DX: E55.9 Vitamin D deficiency, unspecified (principal); Z13.0 Encounter for screening for diseases of the blood and blood-forming organs and certain disorders involving the immune mechanism; Z13.220 Encounter for screening for lipoid disorders; Z13.29 Encounter for screening for other suspected endocrine disorder

== ENCOUNTER → 2022-02-11 | Outpatient (CLI) | payer OTHER | LOC: M WHC 13:13 | PROVIDERS: ATTEND Family Medicine | DX: E04.1 Nontoxic single thyroid nodule (principal) ==

== ENCOUNTER → 2023-06-17 | Outpatient (CLI) | payer OTHER ==
[~2023-06-17] MED LIST changes: -PREG25CA2; +PREG25CA3
[2023-06-17 16:05] LABS: BASO # 0.1 10^3/uL (0.0-0.2); BASO % 0.7 % (0.0-1.0); EOS # 0.2 10^3/uL (0.0-0.5); EOS % 2.3 % (0.0-3.0); HEMATOCRIT 45.5 % (36.0-47.0); HEMOGLOBIN 15.3 g/dl (12.0-15.5); LYMPH # 3.6 10^3/uL (1.5-5.0); LYMPH % 37.2 % (24.0-44.0); MEAN CORPUSCULAR HEMOGLOBIN 28.9 pg (27.0-33.0); MEAN CORPUSCULAR HGB CONC 33.6 g/dl (32.0-36.5); MONO # 0.7 10^3/uL (0.0-0.8); MONO % 7.2 % (2.0-8.0); NEUTROPHILS % 52.4 % (36.0-66.0); PLATELET COUNT, AUTOMATED 328 10^3/uL (150-450); RED BLOOD COUNT 5.29 10^6/uL (4.00-5.40); WHITE BLOOD COUNT 9.6 10^3/uL (4.0-10.0)
[2023-06-17 16:23] LABS: THYROID STIMULATING HORMONE 0.592 uIU/ML (0.55-4.78); TOTAL 25(OH) VITAMIN D 15.2 NG/ML (20.0-100.0)
[2023-06-17 16:25] LABS: ALBUMIN 3.8 G/DL (3.2-5.2); ALKALINE PHOSPHATASE 57 U/L (46-116); ALT/SGPT 27 U/L (7.0-40); AST/SGOT 15 U/L (<34); BILIRUBIN,TOTAL 0.8 MG/DL (0.3-1.2); BLOOD UREA NITROGEN 12 MG/DL (9-23); CALCIUM LEVEL 8.6 MG/DL (8.5-10.1); CARBON DIOXIDE LEVEL 29 MMOL/L (20-31); CHLORIDE LEVEL 105 MMOL/L (98-107); CREATININE FOR GFR 0.78 MG/DL (0.55-1.30); GLOMERULAR FILTRATION RATE > 60.0 (>58); GLUCOSE, FASTING 81 MG/DL (60-100); POTASSIUM SERUM 4.6 MMOL/L (3.5-5.1); SODIUM LEVEL 139 MMOL/L (136-145); TOTAL PROTEIN 7.3 G/DL (5.7-8.2)
[2023-06-17 16:26] LABS: FREE T4 0.99 NG/DL (0.89-1.76)
== END ==
LOC: M PLALAB 14:39
PROVIDERS: ATTEND Nurse Practitioner Adult Health
DX: E55.9 Vitamin D deficiency, unspecified (principal); E04.1 Nontoxic single thyroid nodule; F33.1 Major depressive disorder, recurrent, moderate

== ENCOUNTER → 2023-08-18 | Outpatient (CLI) | payer OTHER | LOC: M WHC 09:37 | PROVIDERS: ATTEND Nurse Practitioner Adult Health | DX: R92.2 Inconclusive mammogram (principal) ==

== ENCOUNTER → 2023-08-31 | Outpatient (CLI) | payer OTHER | LOC: M WHC 13:27 | PROVIDERS: ATTEND Nurse Practitioner Adult Health | DX: R92.2 Inconclusive mammogram (principal) | CPT/HCPCS: 77065; G0279 ==

== ENCOUNTER → 2023-09-16 | Outpatient (CLI) | payer OTHER | LOC: M PLALAB 11:47 | PROVIDERS: ATTEND Nurse Practitioner Adult Health | DX: E55.9 Vitamin D deficiency, unspecified (principal); M25.559 Pain in unspecified hip ==

== ENCOUNTER → 2023-12-08 | Outpatient (CLI) | payer OTHER ==
[~2023-12-08] MED LIST changes: -ZOLP12.518; +ZOLP12.535
[2023-12-08 18:01] LABS: BASO # 0.1 10^3/uL (0.0-0.2); BASO % 0.8 % (0.0-1.0); EOS # 0.2 10^3/uL (0.0-0.5); EOS % 2.1 % (0.0-3.0); HEMATOCRIT 46.7 % (36.0-47.0); HEMOGLOBIN 15.6 g/dl (12.0-15.5); LYMPH # 3.5 10^3/uL (1.5-5.0); LYMPH % 33.1 % (24.0-44.0); MEAN CORPUSCULAR HEMOGLOBIN 28.9 pg (27.0-33.0); MEAN CORPUSCULAR HGB CONC 33.4 g/dl (32.0-36.5); MEAN CORPUSCULAR VOLUME 86.5 fl (80.0-96.0); MONO # 0.8 10^3/uL (0.0-0.8); MONO % 7.3 % (2.0-8.0); NEUTROPHILS % 56.4 % (36.0-66.0); PLATELET COUNT, AUTOMATED 387 10^3/uL (150-450); WHITE BLOOD COUNT 10.6 10^3/uL (4.0-10.0)
[2023-12-08 18:10] LABS: C REACTIVE PROTEIN QUANTITATIV < 0.40 MG/DL (<1.0)
[2023-12-08 18:16] LABS: ERYTHROCYTE SEDIMENTATION RATE 21 mm/hr (0-20)
[2023-12-12 15:08] LABS: CYCLIC CITRULLINATED PEPTIDE < 16 UNITS (<20)
[2023-12-12 16:12] LABS: ANA SCREEN, IFA NEGATIVE (NEGATIVE)
[2023-12-12 16:53] LABS: RHEUMATOID FACTOR QUANT 6.5 IU/ML (<14)
== END ==
LOC: M PLALAB 15:35
PROVIDERS: ATTEND Nurse Practitioner Adult Health
DX: M79.7 Fibromyalgia (principal)

== ENCOUNTER → 2024-06-18 | Outpatient (CLI) | payer OTHER ==
[2024-06-18 11:12] LABS: BASO # 0.1 10^3/uL (0.0-0.2); BASO % 0.7 % (0.0-1.0); EOS # 0.2 10^3/uL (0.0-0.5); EOS % 2.6 % (0.0-3.0); HEMATOCRIT 44.2 % (36.0-47.0); HEMOGLOBIN 14.8 g/dl (12.0-15.5); LYMPH % 28.3 % (24.0-44.0); MEAN CORPUSCULAR HEMOGLOBIN 29.1 pg (27.0-33.0); MEAN CORPUSCULAR HGB CONC 33.5 g/dl (32.0-36.5); MONO # 0.5 10^3/uL (0.0-0.8); MONO % 7.4 % (2.0-8.0); NEUTROPHILS # 4.3 10^3/uL (1.5-8.5); NEUTROPHILS % 60.7 % (36.0-66.0); PLATELET COUNT, AUTOMATED 337 10^3/uL (150-450); RED BLOOD COUNT 5.08 10^6/uL (4.00-5.40)
[2024-06-18 11:52] LABS: ALBUMIN 3.6 G/DL (3.2-5.2); ALKALINE PHOSPHATASE 61 U/L (35-104); ALT/SGPT 20 U/L (7.0-40); AST/SGOT 9 U/L (<34); BILIRUBIN,TOTAL 0.5 MG/DL (0.3-1.2); BLOOD UREA NITROGEN 14 MG/DL (9-23); CALCIUM LEVEL 8.6 MG/DL (8.5-10.1); CARBON DIOXIDE LEVEL 28 MMOL/L (20-31); CHLORIDE LEVEL 103 MMOL/L (98-107); CHOLESTEROL LEVEL 209 MG/DL (<200); CHOLESTEROL RISK RATIO 3.05 (<5); CREATININE FOR GFR 0.79 MG/DL (0.55-1.30); GLOMERULAR FILTRATION RATE > 60.0 (>58); GLUCOSE, FASTING 84 MG/DL (60-100); HDL CHOLESTEROL 68.4 MG/DL (>40); LDL CHOLESTEROL 111.6 MG/DL (<100); NON-HDL-C 140.6 MG/DL; POTASSIUM SERUM 4.5 MMOL/L (3.5-5.1); SODIUM LEVEL 140 MMOL/L (136-145); TOTAL PROTEIN 7.2 G/DL (5.7-8.2); TRIGLYCERIDES LEVEL 145 MG/DL (<150)
[2024-06-18 11:53] LABS: THYROID STIMULATING HORMONE 0.707 uIU/ML (0.55-4.78)
[2024-06-18 11:54] LABS: FREE T4 1.08 NG/DL (0.89-1.76)
[2024-06-18 11:56] LABS: TOTAL 25(OH) VITAMIN D 21.1 NG/ML (20.0-100.0)
== END ==
LOC: M PLALAB 08:55
PROVIDERS: ATTEND Nurse Practitioner Adult Health
DX: E55.9 Vitamin D deficiency, unspecified (principal); Z13.220 Encounter for screening for lipoid disorders; F33.1 Major depressive disorder, recurrent, moderate; F41.1 Generalized anxiety disorder

== ENCOUNTER → 2024-07-11 | Outpatient (CLI) | payer OTHER ==
[2024-07-11 14:26] LABS: FREE T4 1.09 NG/DL (0.89-1.76); RHEUMATOID FACTOR QUANT < 3.5 IU/ML (<14); THYROID STIMULATING HORMONE 0.479 uIU/ML (0.55-4.78)
[2024-07-11 14:28] LABS: FOLATE 14.5 NG/ML (>5.4); VITAMIN B12 LEVEL 386 PG/ML (211-911)
[2024-07-13 15:08] LABS: ANA PATTERN Nuclear, Speckled (NEGATIVE); ANA SCREEN, IFA POSITIVE (NEGATIVE); ANA TITER 1:40 titer (<1:40)
[2024-07-15 02:57] LABS: VITAMIN E(ALPHA TOCOPHEROL) 12.2 mg/L (5.7-19.9); VITAMIN E(GAMMA TOCOPHEROL) 1.4 mg/L (<=4.3)
[2024-07-17 16:38] LABS: VITAMIN B1 LEVEL WHOLE BLOOD 150 nmol/L (78-185)
[2024-07-17 18:52] LABS: VITAMIN B6,PYRIDOXAL PHOSPHATE 3.6 ng/mL (2.1-21.7)
== END ==
LOC: M PLALAB 10:04
PROVIDERS: ATTEND Student in an Organized Health Care Education/Training Program
DX: R51.9 Headache, unspecified (principal); R41.3 Other amnesia

== ENCOUNTER 2024-08-10 09:26 | Emergency (ER) | payer OTHER ==
[~2024-08-10] VITALS: Ht 172.7 cm; Wt 98.0 kg
[~2024-08-10 09:26] MED LIST changes: +AMBI12.52 PO; +NAPR-1405 PO
[2024-08-10 09:32] VITALS: TEMP 95.9
[2024-08-10] MEDS ORDERED: BUPR-597 (09:36)
[2024-08-10 10:02] LABS: BASO # 0.1 10^3/uL (0.0-0.2); BASO % 0.9 % (0.0-1.0); EOS # 0.1 10^3/uL (0.0-0.5); EOS % 1.7 % (0.0-3.0); HEMATOCRIT 40.7 % (36.0-47.0); HEMOGLOBIN 14.1 g/dl (12.0-15.5); LYMPH # 2.9 10^3/uL (1.5-5.0); LYMPH % 35.8 % (24.0-44.0); MEAN CORPUSCULAR HEMOGLOBIN 28.8 pg (27.0-33.0); MEAN CORPUSCULAR HGB CONC 34.6 g/dl (32.0-36.5); MEAN CORPUSCULAR VOLUME 83.2 fl (80.0-96.0); MONO # 0.6 10^3/uL (0.0-0.8); MONO % 7.1 % (2.0-8.0); NEUTROPHILS # 4.5 10^3/uL (1.5-8.5); NEUTROPHILS % 54.1 % (36.0-66.0); PLATELET COUNT, AUTOMATED 342 10^3/uL (150-450); RED BLOOD COUNT 4.89 10^6/uL (4.00-5.40); WHITE BLOOD COUNT 8.2 10^3/uL (4.0-10.0)
[2024-08-10 10:21] LABS: CK-MB VALUE MASS 1.7 NG/ML (<3.6); LIPASE 32 U/L (12-53)
[2024-08-10 10:24] LABS: ALBUMIN 3.7 G/DL (3.2-5.2); ALKALINE PHOSPHATASE 59 U/L (35-104); ALT/SGPT 22 U/L (7.0-40); AST/SGOT 11 U/L (<34); BILIRUBIN,DIRECT 0.1 MG/DL (<0.4); BILIRUBIN,TOTAL 0.5 MG/DL (0.3-1.2); BLOOD UREA NITROGEN 10 MG/DL (9-23); CARBON DIOXIDE LEVEL 22 MMOL/L (20-31); CHLORIDE LEVEL 108 MMOL/L (98-107); CPK CREATINE PHOSPHOKINASE 193 U/L (34-145); CREATININE FOR GFR 0.73 MG/DL (0.55-1.30); GLOMERULAR FILTRATION RATE > 60.0 (>58); GLUCOSE, FASTING 102 MG/DL (60-100); MB/CK RELATIVE INDEX 0.88 (< OR =4); POTASSIUM SERUM 3.6 MMOL/L (3.5-5.1); SODIUM LEVEL 142 MMOL/L (136-145); TOTAL PROTEIN 7.3 G/DL (5.7-8.2)
[2024-08-10 10:25] LABS: THYROID STIMULATING HORMONE 0.537 uIU/ML (0.55-4.78)
[2024-08-10] MEDS ORDERED: ISOVUE-370 76% 100ML VIAL As Ordered ONE (10:37)
[2024-08-10 11:50] LABS: CK-MB VALUE MASS 1.2 NG/ML (<3.6)
[2024-08-10 11:51] LABS: CPK CREATINE PHOSPHOKINASE 179 U/L (34-145); MB/CK RELATIVE INDEX 0.67 (< OR =4)
[2024-08-10 13:30] VITALS: BP 113/79; O2SAT 98
== END 2024-08-10 14:00 | disposition home or self-care (01) ==
LOC: M ED 09:26
DX: R06.02 Shortness of breath (principal); M79.7 Fibromyalgia; Z79.899 Other long term (current) drug therapy
CPT/HCPCS: 36415; 71045; 71275; 80048; 80076; 82550; 82553; 83690; 84443; 84484; 85025; 93005; 93041; 94760; 99285; Q9967

== ENCOUNTER 2024-08-29 09:44 | Day surgery (SDC) | payer OTHER ==
[~2024-08-29] VITALS: Ht 172.7 cm; Wt 95.7 kg
[~2024-08-29 09:44] MED LIST changes: +BUPR-597
[2024-08-29] MEDS ORDERED: propofoL 200 MG/20 ML VIAL As Ordered ONE (11:41)
[2024-08-29 12:27] VITALS: BP 118/77; TEMP 98.2; O2SAT 100
== END 2024-08-29 12:36 | disposition home or self-care (01) ==
LOC: M OPP 09:44
PROVIDERS: ATTEND Surgery
DX: Z12.11 Encounter for screening for malignant neoplasm of colon (principal); K64.0 First degree hemorrhoids; Z80.0 Family history of malignant neoplasm of digestive organs; Z79.899 Other long term (current) drug therapy

== ENCOUNTER → 2024-09-21 | Outpatient (CLI) | payer OTHER ==
[~2024-09-21] MED LIST changes: -AMBI12.52 PO; -BUPR-597; +BUPR-766; -PREG25CA PO; +PREG25CA63 PO; +ZOLP12.561 PO
[2024-09-21 11:50] LABS: URIC ACID 5.2 MG/DL (3.1-7.8)
[2024-09-21 11:53] LABS: C REACTIVE PROTEIN QUANTITATIV < 0.50 MG/DL (<1.0)
[2024-09-21 11:55] LABS: RHEUMATOID FACTOR QUANT < 3.5 IU/ML (<14); THYROID STIMULATING HORMONE 0.499 uIU/ML (0.55-4.78)
[2024-09-21 11:56] LABS: FREE T4 1.18 NG/DL (0.89-1.76)
[2024-09-21 11:58] LABS: THYROID PEROXIDASE ANTIBODY 32 U/ML (<60.0)
[2024-09-24 17:38] LABS: ANA SCREEN, IFA NEGATIVE (NEGATIVE)
== END ==
LOC: M PLALAB 08:43
PROVIDERS: ATTEND Nurse Practitioner Adult Health
DX: R76.0 Raised antibody titer (principal)

== ENCOUNTER 2024-12-10 09:17 | Emergency (ER) | payer OTHER ==
[~2024-12-10] VITALS: Ht 172.7 cm; Wt 95.7 kg
[2024-12-10 10:58] VITALS: BP 120/78; TEMP 97.4; O2SAT 98
[2024-12-10] MEDS ORDERED: KETO-204 PO (10:59)
[2024-12-10] MEDS: ACETAMINOPHEN 325 MG TAB PO ONE (11:08)
[2024-12-10] MEDS: KETOROLAC 30 MG/ML 1 ML VIAL IM ONE (11:08)
== END 2024-12-10 11:16 | disposition home or self-care (01) ==
LOC: M ED 09:17
DX: M75.31 Calcific tendinitis of right shoulder (principal); Z79.899 Other long term (current) drug therapy
CPT/HCPCS: 73030; 96372; 99283; J1885